=== PATIENT | female | born 1950 | race Caucasian/White ===

== ENCOUNTER 2017-02-12 14:55 | Inpatient (IN) ==
--- NOTE | 2017-02-12 17:12 | General Surg History&Physical ---
<Betito Eaton - Last Filed: 02/12/17 17:43> Date of Encounter: 02/12/17 Time of Encounter: 17:03 Assessment and Plan (1) Acute cholecystitis Current Visit: No Status: Acute Given patient's severe pain and risk of ascending cholangitis, we feel that immediate surgery is appropriate in this patient to limit complication, rather than waiting for a course of antibiotics Plan is for laparoscopic cholecystectomy (possible open) w/ cholangiogram this evening Consent was obtained from the patient The assessment and plan as outlined above was discussed with the patient and/or family members who expressed understanding and agreement. All questions were answered. History of Present Illness Chief complaint: abdominal pain HPI: Ms. Perez is a 66 year old female who presents as a direct admit from [facility] with severe RUQ abdominal pain. The pain started Saturday night, but she denies an inciting factor. She states that it started in the epigastric area and has since migrated to the RUQ. She had nausea and numerous episodes of vomiting the 2 days prior and since. She saw her PCP on Saturday, who prescribed maalox, zofran, and zantac, but none have helped. She admits to anorexia and has not had a bowel movement since the pain began. She denies fever and chills. CT at [facility] was concerning for acute cholecystitis - with significant cholelithiasis, wall thickening, and pericholecystic stranding and fluid. Past medical history is significant for LA x2 on Plavix, HTN, and DM. She did take her plavix this morning. Her only past abdominal surgery was a tubal ligation. Past Med Surg Social Fam HX - Past Medical History Medical history: diabetes, hypertension, myocardial infarction, other Psychiatric history: no psych history - Social History Smoking Status: Never smoker Smokeless Tobacco Status: No Alcohol use: none Drug use: none Medications and Allergies Atorvastatin Calcium [Lipitor] 80 mg PO DAILY 09/10/15 [History] Clopidogrel [Plavix] 75 mg PO DAILY 09/10/15 [History] Ezetimibe [Zetia] 10 mg PO DAILY 09/10/15 [History] Insulin Glargine,Hum.rec.anlog [Lantus Solostar] 20 unit SQ QAM 09/10/15 [ History] Isosorbide MONOnitrate [Isosorbide Mononitrate] 30 mg PO DAILY 09/10/15 [History ] Lisinopril [Zestril] 20 mg PO DAILY 09/10/15 [History] Metoprolol XL (24 HR) Succ [Toprol Xl] 50 mg PO DAILY 09/10/15 [History] hydroCHLOROthiazide [Hydrochlorothiazide] 12.5 mg PO DAILY 09/10/15 [History] Alendronate Sodium [Fosamax] 70 mg PO QWEEK 02/12/17 [History] Canagliflozin [Invokana] 100 mg PO DAILY 02/12/17 [History] Linagliptin [Tradjenta] 5 mg PO DAILY 02/12/17 [History] Mag Hydrox/Al Hydrox/Simeth [Maalox] 10 ml PO QID PRN 02/12/17 [History] Nitroglycerin [Nitrostat] 0.4 mg SL PER PKG DI 02/12/17 [History] Ondansetron ODT [Zofran ODT] 4 mg SL Q8HR 02/12/17 [History] Ranitidine HCl [Zantac] 300 mg PO DAILY 02/12/17 [History] Allergies Iodinated Contrast- Oral and IV Dye Allergy (Verified 02/12/17 12:58) Difficulty Breathing acetaminophen [From [place]] Adverse Reaction (Verified 02/12/17 12:58) Vomiting aspirin [ASA] Adverse Reaction (Verified 02/12/17 12:58) Chest Pain gabapentin Adverse Reaction (Verified 02/12/17 12:58) Diarrhea hydrocodone [From [place]] Adverse Reaction (Verified 02/12/17 12:58) Vomiting Review of Systems All systems PM: A 10-system review of systems was performed and is negative for pertinent findings except as documented above in the HPI. - Constitutional as per HPI, anorexia, no chills, no fever(s) - Cardiovascular no chest pain - Gastrointestinal as per HPI, abdominal pain, nausea, vomiting General Surgery Exam Initial Vital Signs Temp Pulse Resp BP Pulse Ox 98.8 F 65 18 119/65 96 02/12/17 16:58 02/12/17 16:58 02/12/17 16:58 02/12/17 16:58 02/12/17 16:58 - General physical appearance well developed, well nourished, severe pain - Eyes normal ocular movement - ENT atraumatic, normocephalic - Neck trachea midline - Respiratory normal respiratory effort, clear to auscultation, other (Pain with deep inspiration) - Cardiovascular Cardiovascular exam: Present: RRR - Abdomen Abdomen general surgery: Present: bowel sounds present, soft, tender (severely) , guarding. Absent: rebound Abdominal Tenderness: Present: RUQ - Neurologic Present: other (tremors of UEs and Head) - Musculoskeletal Present: other (R hip flexed as position of comfort) - Psychiatric Psychiatric general surgery: Present: appropriate, speech is normal - Additional Findings Dean's sign positive Results - Labs All other labs normal. - Imaging CT scan - abdomen: report reviewed ( CT/CT abd pelvis wo no iv no oral IMPRESSION: 1. Cholelithiasis with diffuse gallbladder wall thickening and pericholecystic stranding suspicious for acute cholecystitis. Further evaluation could be obtained with right upper quadrant ultrasound. Trace likely reactive fluid in the pelvis. No convincing evidence of perforation. 2. 2 cm fat density right adrenal nodule unchanged from 2009 and compatible with a benign myelolipoma. 3. 1.7 cm calcified splenic artery aneurysm unchanged from 2009. Recommend yearly follow-up. 4. Colonic diverticulosis. D/ / Yohannes Jackson MD / Yohannes Jackson MD Interpreting Provider: Yohannes Jackson MD ), image reviewed <Chi Jean-Baptiste - Last Filed: 02/12/17 18:54> Date of Encounter: 02/12/17 History of Present Illness HPI: Ms. Perez is a 66 year old female Review of Systems All systems PM: A 10-system review of systems was performed and is negative for pertinent findings except as documented above in the HPI. General Surgery Exam Initial Vital Signs Temp Pulse Resp BP Pulse Ox 98.8 F 65 18 119/65 96 02/12/17 16:58 02/12/17 16:58 02/12/17 16:58 02/12/17 16:58 02/12/17 16:58 Results - Labs All other labs normal. - Attending Attestation I examined this patient and my medical decision-making was reviewed with the Resident Physician. I agree with the documented findings, disposition and treatment plan as described except to the extent set forth below. The patient is in and evaluated with the resident. Immediately upon arriving at the floor physical examination was performed. The patient has an acute abdomen. I personally reviewed the CAT scan. CAT scan findings are consistent with severe cholecystitis and likely gangrenous cholecystitis. I think it is prudent to take her urgently to the operating room for laparoscopic cholecystectomy. Chi Jean-Baptiste MD FACS
--- NOTE | 2017-02-12 17:38 | Anesthesia Evaluation PreOp ---
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: Denies Any Significant HX Other Medical History: Diabetes Type II Anesthesia History: No Prior Anesthetic Complications Alcohol Use: none Drug use: none Medications and Allergies Atorvastatin Calcium [Lipitor] 80 mg PO DAILY 09/10/15 [History] Clopidogrel [Plavix] 75 mg PO DAILY 09/10/15 [History] Ezetimibe [Zetia] 10 mg PO DAILY 09/10/15 [History] Insulin Glargine,Hum.rec.anlog [Lantus Solostar] 20 unit SQ QAM 09/10/15 [ History] Isosorbide MONOnitrate [Isosorbide Mononitrate] 30 mg PO DAILY 09/10/15 [History ] Lisinopril [Zestril] 20 mg PO DAILY 09/10/15 [History] Metoprolol XL (24 HR) Succ [Toprol Xl] 50 mg PO DAILY 09/10/15 [History] hydroCHLOROthiazide [Hydrochlorothiazide] 12.5 mg PO DAILY 09/10/15 [History] Alendronate Sodium [Fosamax] 70 mg PO QWEEK 02/12/17 [History] Canagliflozin [Invokana] 100 mg PO DAILY 02/12/17 [History] Linagliptin [Tradjenta] 5 mg PO DAILY 02/12/17 [History] Mag Hydrox/Al Hydrox/Simeth [Maalox] 10 ml PO QID PRN 02/12/17 [History] Nitroglycerin [Nitrostat] 0.4 mg SL PER PKG DI 02/12/17 [History] Ondansetron ODT [Zofran ODT] 4 mg SL Q8HR 02/12/17 [History] Ranitidine HCl [Zantac] 300 mg PO DAILY 02/12/17 [History] Allergies Iodinated Contrast- Oral and IV Dye Allergy (Verified 02/12/17 12:58) Difficulty Breathing acetaminophen [From [place]] Adverse Reaction (Verified 02/12/17 12:58) Vomiting aspirin [ASA] Adverse Reaction (Verified 02/12/17 12:58) Chest Pain gabapentin Adverse Reaction (Verified 02/12/17 12:58) Diarrhea hydrocodone [From [place]] Adverse Reaction (Verified 02/12/17 12:58) Vomiting - Meds/Allergy Pre-op Review Medications Reviewed: Yes Allergies Reviewed: Yes Beta Blockers on Current Med List: Yes If Beta Blockers taken, Date/Time (Last Dose taken): 02-12-17 metoprolol 9 am Anesthesia Results - Labs Laboratory Tests 02/12/17 02/12/17 02/12/17 13:10 14:10 14:46 WBC 22.5 H Hgb 15.7 H Hct 44.5 Plt Count 184 PT 14.0 H INR 1.3 APTT 28.8 Sodium 133 L Potassium 4.4 Chloride 99 Carbon Dioxide 21 BUN 25 H Creatinine 1.32 H Est GFR ( Amer) 49 L Est GFR (Non-Af Amer) 40 L BUN/Creatinine Ratio 19 Glucose 293 H Calculated Osmolality 291 Calcium 9.1 - Imaging EKG: report reviewed, image reviewed (SINUS RHYTHM NONSPECIFIC T-WAVE ABNORMALITY) Additional studies: stress test: Impression: Baseline elevated BP (182/84) with normal hemodynamic responses to pharmacologic stress. BP improved to 146/70 in recovery. Non-specific ST-T wave changes were seen with regadenoson. No changes diagnostic of ischemia. Gated LVEF > 70%. Perfusion imaging was negative for ischemia or infarct. Anesthesia Exam Last Vital Signs Temp 98.8 F 02/12/17 16:58 Pulse 65 02/12/17 16:58 Resp 18 02/12/17 16:58 BP 119/65 02/12/17 16:58 Pulse Ox 96 02/12/17 16:58 - HEENT Pupil (Motor): Pupils equal, EOMI Mallampati: III Teeth: Edentulous Denture Type: Upper: Complete Oral Opening: Greater than 3 - SCADA TECHNICIAN LOC: Oriented SCADA TECHNICIAN Motor: Normal RUE, Normal LUE, Normal RLE, Normal LLE, Normal Face - Cardiac Rhythm: Regular Murmur: None - Pulmonary Breath Sounds: bilateral Clear Respiratory Effort: Symmetrical Anesthesia Assess/Plan ASA Score: 3 Modified [place] Scale for Level of Consciousness: Cooperative, oriented, and tranquil Anesthetic Plan: General Monitoring Plan: Standard Monitors Recovery Plan: PACU
[2017-02-12] MEDS ORDERED: CefOXitin 1,000 MG VIAL ONE (17:45)
[2017-02-12] MEDS ORDERED: Lidocaine -MPF 2% 2 ML VIAL ONE ×2 (17:46→17:48)
[2017-02-12] MEDS ORDERED: *HR* Rocuronium Bromide 50 MG/5 ML VIAL ONE (17:46)
[2017-02-12] MEDS ORDERED: *HR* FentaNYL (PF) 100 MCG/2 ML VIAL ONE (17:46)
[2017-02-12] MEDS ORDERED: Lidocaine -MPF 4% 5 ML AMPUL ONE (17:46)
[2017-02-12] MEDS ORDERED: *HR* Propofol 200 MG/20 ML VIAL IVP ONE (17:46)
[2017-02-12] MEDS ORDERED: Ondansetron 4 MG/2 ML VIAL ONE ×2 (17:48→19:17)
[2017-02-12] MEDS ORDERED: Dexamethasone 4 MG/ML VIAL ONE (19:17)
[2017-02-12] MEDS ORDERED: Acetaminophen IV 1,000 MG/100 ML INFUS..BTL ONE (19:24)
--- NOTE | 2017-02-12 20:00 | Operative Note ---
Date of procedure: 02/12/17 Pre-op diagnosis: Acute cholecystitis Post-op diagnosis: other (Acute gangrenous cholecystitis) Procedure: Laparoscopic cholecystectomy, cholangiogram Anesthesia: AMARI Surgeon: Chi Jean-Baptiste Estimated blood loss (cc): 25 Specimen: Gallbladder and contents Condition: stable Disposition: PACU Procedure in Detail: Laparoscopic cholecystectomy and intraoperative cholangiogram Operative procedure after informed consent and appropriate patient identification timeout the patient's take major operating suite and placed supine position given adequate general endotracheal anesthesia the abdomen is prepped and draped in sterile fashion utilizing ChloraPrep standard draping techniques timeout was taken patient is identified. I made a vertical midline incision below the umbilicus dissected down to level of fascia there are 2 traction stitches placed in the abdominal cavity was entered visually. A [place]o trocar was placed in the abdomen and the abdomen was insufflated to 15 mmHg pressure CO2 the gallbladder was visualized. A placement 11 port in the subxiphoid area and 2 5 mm ports in the subcostal area. The gallbladder was gangrenous and necrotic. The gallbladder was completely encased and acute inflammatory tissue comprised of the omentum. The gallbladder was grasped and elevated. A variety of blunt and sharp dissection techniques were used to isolate the cystic duct and cystic artery. The cystic artery was controlled with 2 surgical clips proximally and one distally and it was divided I placed a surgical clip on the neck the gallbladder and obtained an intraoperative cholangiogram using 30 mL of Isovue. The patient has a known allergy to IVP dye. She tolerated the contrast into the common bile duct without difficulty, hypotension, or rash. Intraoperative cholangiogram was normal. The cholangiocatheter was removed and the cystic duct was controlled with 2 surgical clips proximally and was divided the gallbladder was removed from the gallbladder fossae using electrocautery. The gallbladder was removed through the #11 port site. I replaced the #11 port and irrigated with copious amounts of antibiotic containing solution. There is no evidence of bleeding or bile leak. All trochars were removed. Fascia was closed with 0 Vicryl skin with 2-0 and 4-0 Vicryl she tolerated the procedure well and was transferred to recovery in stable condition
[2017-02-12] MEDS ORDERED: Dextrose Gel 15 GM PO PRN ×2 (21:13)
[2017-02-12] MEDS ORDERED: *HR* OxyCODONE/APAP 5/325 TABLET PO PRN (21:13)
[2017-02-12] MEDS ORDERED: *HR* Dextrose 50 % in Water (Syg) 50 ML SYRINGE IVP PRN (21:13)
[2017-02-12] MEDS ORDERED: Ondansetron 4 MG/2 ML VIAL IVP PRN (21:13)
[2017-02-12] MEDS ORDERED: D5% in Water 1,000 ML IVC PRN (21:13)
--- NOTE | 2017-02-12 22:16 | Anesthesia Evaluation Post Op ---
Date of Encounter: 02/12/17 Time of Encounter: 20:30 - Vital Signs Vital Signs: Vital Signs/O2 Sat/Glucose, Most Current Temp Pulse Resp BP Pulse Ox 02/12/17 20:39 99.3 F 62 12 128/52 97 02/12/17 20:29 63 14 120/71 97 02/12/17 20:19 64 16 122/60 97 02/12/17 20:09 99 F 64 16 123/65 100 - Lungs Lungs: Clear Ascult./Percussion - Airway Airway: Non-obstructed - Cardiovascular Regular Rate - Mental Status Mental Status: Alert & Oriented, Answers Appropriately - Pain Pain Scale: 0 Pain Scale used: Numeric (1 - 10) - Nausea Vomiting Nausea Vomiting: Not Present - Hydration Hydration: NPO, Has not voided - Discharge PostOp Status: Transfer Patient to floor Anes Supervising Prov Stmt: PT seen/evaluated, VSS and pt has met criteria for discharge to floor. - MD Adelso
[2017-02-13] MEDS: MetroNIDAZOLE 500 MG/100 ML 500 MG/100 ML BAG IVPB SCH ×4 (00:23→23:50)
[2017-02-13] MEDS: *HR* Metoprolol 5 MG/5 ML VIAL IVP SCH ×4 (00:23→17:57)
[2017-02-13] MEDS: *HR* HYDROmorphone (PF) 1 MG/ML SYRINGE IVP PRN (04:42)
[2017-02-13 05:22] LABS: Basophils % 0.1 %; Hematocrit 38.8 % (35.3-44.9); Immature Granulocytes % 0.5 % (0-4); Lymphocytes # 1.1 K/mcL (0.6-4.6); Mean Corpuscular HGB Conc 33.5 g/dL (31.6-35.5); Mean Corpuscular Hemoglobin 29.9 pg (28.0-33.3); Mean Corpuscular Volume 89.2 fL (83.0-100.0); Mean Platelet Volume 12.1 fL (9.4-12.4); Monocytes # 0.6 K/mcL (0.0-1.3); Monocytes % 4.2 %; Neutrophils # 11.5 K/mcL (1.6-8.9); Platelet Count 153 K/mcL (140-400); Red Blood Count 4.35 M/mcL (3.82-4.97); Red Cell Distribution Width 12.3 % (11.5-14.5); Segmented Neutrophils % 87.2 %
[2017-02-13 05:39] LABS: Alanine Aminotransferase 50 Units/L (0-55); Albumin 2.7 g/dL (3.5-5.0); Albumin/Globulin Ratio 0.8 (1.1-2.2); Alkaline Phosphatase 77 Units/L (38-126); Aspartate Amino Transferase 76 Units/L (5-34); BUN/Creatinine Ratio 27 (6-26); Bilirubin,Direct 0.6 mg/dL (0.0-0.5); Bilirubin,Indirect 2.4 mg/dL (0.0-1.2); Blood Urea Nitrogen 24 mg/dL (7-20); Calcium 8.4 mg/dL (8.6-10.8); Carbon Dioxide 25 mEq/L (19-29); Chloride 103 mEq/L (98-109); Globulin 3.2 g/dL (2.4-3.5); Glucose 270 mg/dL (70-99); Osmolality,Calculated 290 (280-300); Potassium 4.4 mEq/L (3.5-4.5); Sodium 133 mEq/L (136-145); Total Protein 5.9 g/dL (6.0-8.3); eGFR For African Americans > 60 (> 60); eGFR For Non-African Americans > 60 (> 60)
[2017-02-13] MEDS: Pantoprazole 40 MG VIAL IVP SCH (05:40)
[2017-02-13] MEDS ORDERED: *HR* Heparin 5,000 UNIT/ML VIAL SQ SCH (06:00)
[2017-02-13] MEDS ORDERED: Insulin LISPRO 300 UNITS/3 ML VIAL SQ SCH (07:30)
[2017-02-13] MEDS: Lisinopril 20 MG TABLET PO SCH (07:39)
[2017-02-13] MEDS: Metoprolol XL (24 HR) Succ 50 MG TAB.ER.24H PO SCH (07:39)
[2017-02-13] MEDS: 0.9 % Sodium Chloride 1,000 ML IVC SCH ×2 (07:40→23:48)
[2017-02-13] MEDS: Isosorbide MONOnitrate (24 HR) 30 MG TAB.ER.24H PO SCH (07:41)
[2017-02-13] MEDS: Canagliflozin [Invokana] 100 MG PO SCH (07:42)
[2017-02-13] MEDS ORDERED: Insulin DETEMIR 100 UNIT/ML X5UNITS SQ SCH (09:00)
--- NOTE | 2017-02-13 09:36 | General Surgery Progress Note ---
<Uma,Betito - Last Filed: 02/13/17 09:29> Date of Encounter: 02/13/17 Time of Encounter: 06:30 - Assessment and Plan (1) Acute cholecystitis Current Visit: No Status: Acute POD #1 Laparoscopic Cholecystectomy Patient is clinically much better since procedure There is particular concern for development of ascending cholangitis during recovery We will monitor for fever over the next 24 hrs WBC trending down current 13.2 < 22.5 We will monitor for improvement in LFTs, total bili 3.0 We will attempt tighter control of glucose by increasing to high dose sliding scale and increasing lantus from 20 to 30 units Continue antibiotics We expect the patient to continue to improve (2) Hyperglycemia Current Visit: Yes Status: Acute See plan of care above Subjective Patient reports: feels better, pain is less, tolerating liquids well, voiding w/ o difficulty, no flatus, no bowel movement, afebrile Narrative: Patient feels much improved, with pain at 2-3/10. Objective Vital Signs - Last 8 Hours Temp Pulse Resp BP Pulse Ox 02/13/17 06:52 97.7 F 74 14 122/74 93 02/13/17 04:16 98.0 F 59 15 128/65 95 Intake and Output 02/12/17 02/13/17 02/13/17 23:59 07:59 15:59 Intake Total 300 / 300 480 / 480 Output Total 100 / 100 1135 / 1135 Balance -100 / -100 -835 / -835 480 / 480 Intake: IV Fluids 300 / 300 Cipro Premix 400 MG/200 200 / 200 ML 400 mg In 200 ml @ 200 mls/hr IVPB Q12HR [facility] Rx #:[id number] Flagyl Premix 500 MG/100 100 / 100 ML 500 mg In 100 ml @ 100 mls/hr IVPB Q8HR [facility] Rx# :[id number] Oral 0 / 0 480 / 480 Output: Urine 1100 / 1100 Estimated Blood Loss 25 / 25 Wound Drainage 75 / 75 35 / 35 Right Upper Abdomen 75 / 75 35 / 35 Other: Meal Breakfast Weight 61.3 kg 63.5 kg Blood Glucose* 230 287 Patient Weight 02/13/17 23:59 Weight 63.5 kg - General physical appearance well developed, well nourished, no distress - Eyes normal ocular movement - ENT atraumatic, normocephalic - Neck Neck exam: trachea midline - Respiratory normal expansion, normal respiratory effort, clear to auscultation - Abdomen Abdomen: Present: soft, tender. Absent: guarding, rebound Abdominal Tenderness: RUQ (expected postoperative tenderness) - Incision Incision: Present: draining (juliane drain), serosanguinous - Psychiatric speech is normal - Labs 02/13/17 04:16 02/13/17 04:16 Diabetes panel 02/13/17 Range/Units 04:16 Sodium 133 L (136-145) mEq/L Potassium 4.4 (3.5-4.5) mEq/L Chloride 103 (98-109) mEq/L Carbon Dioxide 25 (19-29) mEq/L BUN 24 H (7-20) mg/dL Creatinine 0.89 (0.57-1.11) mg/dL Glucose 270 H (70-99) mg/dL Calcium 8.4 L (8.6-10.8) mg/dL AST 76 H (5-34) Units/L ALT 50 (0-55) Units/L Alkaline Phosphatase 77 (38-126) Units/L Albumin 2.7 L (3.5-5.0) g/dL Calcium panel 02/13/17 Range/Units 04:16 Calcium 8.4 L (8.6-10.8) mg/dL Albumin 2.7 L (3.5-5.0) g/dL Pituitary panel 02/13/17 Range/Units 04:16 Sodium 133 L (136-145) mEq/L Potassium 4.4 (3.5-4.5) mEq/L Chloride 103 (98-109) mEq/L Carbon Dioxide 25 (19-29) mEq/L BUN 24 H (7-20) mg/dL Creatinine 0.89 (0.57-1.11) mg/dL Glucose 270 H (70-99) mg/dL Calcium 8.4 L (8.6-10.8) mg/dL Adrenal panel 02/13/17 Range/Units 04:16 Sodium 133 L (136-145) mEq/L Potassium 4.4 (3.5-4.5) mEq/L Chloride 103 (98-109) mEq/L Carbon Dioxide 25 (19-29) mEq/L BUN 24 H (7-20) mg/dL Creatinine 0.89 (0.57-1.11) mg/dL Glucose 270 H (70-99) mg/dL Calcium 8.4 L (8.6-10.8) mg/dL Total Bilirubin 3.0 H (0.2-1.2) mg/dL AST 76 H (5-34) Units/L ALT 50 (0-55) Units/L Alkaline Phosphatase 77 (38-126) Units/L Albumin 2.7 L (3.5-5.0) g/dL - VTE Documentation of Mechanical Device: Intermittent pneumatic compression device Consult Discharge Plan - Plan Referrals: Cameron Durán MD [Primary Care Provider] - Payal Funes CNP [Advanced Practice Nurse] - 02/28/17 10:30 am <Chi Jean-Baptiste - Last Filed: 02/14/17 08:12> Date of Encounter: 02/13/17 Objective Vital Signs - Last 8 Hours Temp Pulse Resp BP Pulse Ox 02/14/17 06:33 97.8 F 57 14 123/68 93 02/14/17 04:58 98.0 F 90 14 139/68 93 Intake and Output 02/13/17 02/14/17 02/14/17 23:59 07:59 15:59 Intake Total 1660 / 1660 120 / 120 Output Total 160 / 160 630 / 630 Balance 1500 / 1500 -510 / -510 Intake: IV Fluids 1300 / 1300 0.9 % Sodium Chloride 1, 1000 / 1000 000 ML @ 75 mls/hr IVC . [id number] [facility] Rx#: [id number] Cipro Premix 400 MG/200 200 / 200 ML 400 mg In 200 ml @ 200 mls/hr IVPB Q12HR [facility] Rx #:[id number] Flagyl Premix 500 MG/100 100 / 100 ML 500 mg In 100 ml @ 100 mls/hr IVPB Q8HR [facility] Rx# :[id number] Oral 360 / 360 120 / 120 Output: Urine 100 / 100 600 / 600 Wound Drainage 60 / 60 30 / 30 Right Upper Abdomen 60 / 60 30 / 30 Other: Meal Dinner Percent of Meal Consumed 100% Stool Size Moderate Small Stool Consistency loose soft soft Stool Color Brown Brown # Voids 1 # Bowel Movements 1 0 Weight 63.095 kg Blood Glucose* 177 144 Patient Weight 02/14/17 23:59 Weight 63.095 kg - Labs 08/17/17 05:30 02/14/17 05:30 Diabetes panel 02/14/17 Range/Units 05:30 Sodium 139 (136-145) mEq/L Potassium 3.8 (3.5-4.5) mEq/L Chloride 111 H (98-109) mEq/L Carbon Dioxide 23 (19-29) mEq/L BUN 27 H (7-20) mg/dL Creatinine 1.25 H (0.57-1.11) mg/dL Glucose 105 H (70-99) mg/dL Calcium 8.8 (8.6-10.8) mg/dL AST 78 H (5-34) Units/L ALT 67 H (0-55) Units/L Alkaline Phosphatase 84 (38-126) Units/L Albumin 3.0 L (3.5-5.0) g/dL Calcium panel 02/14/17 Range/Units 05:30 Calcium 8.8 (8.6-10.8) mg/dL Albumin 3.0 L (3.5-5.0) g/dL Pituitary panel 02/14/17 Range/Units 05:30 Sodium 139 (136-145) mEq/L Potassium 3.8 (3.5-4.5) mEq/L Chloride 111 H (98-109) mEq/L Carbon Dioxide 23 (19-29) mEq/L BUN 27 H (7-20) mg/dL Creatinine 1.25 H (0.57-1.11) mg/dL Glucose 105 H (70-99) mg/dL Calcium 8.8 (8.6-10.8) mg/dL Adrenal panel 02/14/17 Range/Units 05:30 Sodium 139 (136-145) mEq/L Potassium 3.8 (3.5-4.5) mEq/L Chloride 111 H (98-109) mEq/L Carbon Dioxide 23 (19-29) mEq/L BUN 27 H (7-20) mg/dL Creatinine 1.25 H (0.57-1.11) mg/dL Glucose 105 H (70-99) mg/dL Calcium 8.8 (8.6-10.8) mg/dL Total Bilirubin 2.0 H (0.2-1.2) mg/dL AST 78 H (5-34) Units/L ALT 67 H (0-55) Units/L Alkaline Phosphatase 84 (38-126) Units/L Albumin 3.0 L (3.5-5.0) g/dL - Attending Attestation I examined this patient and my medical decision-making was reviewed with the Resident Physician. I agree with the documented findings, disposition and treatment plan as described except to the extent set forth below. The patient was seen and evaluated on morning rounds. Her laboratory tests are improved. Glucose remains high and we will increase her insulin coverage. Overall good progress. Chi Burgess FACS
[2017-02-13] MEDS: Insulin DETEMIR 100 UNIT/ML X5UNITS SQ SCH (10:00)
[2017-02-13] MEDS: Insulin LISPRO 300 UNITS/3 ML VIAL SQ SCH ×2 (11:54→16:26)
[2017-02-13] MEDS: Ibuprofen 800 MG TABLET PO PRN (14:51)
[2017-02-14] MEDS: *HR* Metoprolol 5 MG/5 ML VIAL IVP SCH ×2 (00:01→06:09)
[2017-02-14] MEDS: Ibuprofen 800 MG TABLET PO PRN (04:55)
[2017-02-14 05:48] LABS: Basophils % 0.3 %; Eosinophils # 0.1 K/mcL (0.0-0.6); Eosinophils % 0.3 %; Hematocrit 42.1 % (35.3-44.9); Hemoglobin 13.8 g/dL (11.5-15.4); Immature Granulocytes % 0.4 % (0-4); Lymphocytes # 2.1 K/mcL (0.6-4.6); Lymphocytes % 14.4 %; Mean Corpuscular HGB Conc 32.8 g/dL (31.6-35.5); Mean Corpuscular Hemoglobin 29.7 pg (28.0-33.3); Mean Corpuscular Volume 90.5 fL (83.0-100.0); Mean Platelet Volume 11.8 fL (9.4-12.4); Monocytes # 1.6 K/mcL (0.0-1.3); Monocytes % 10.9 %; Neutrophils # 10.7 K/mcL (1.6-8.9); Platelet Count 198 K/mcL (140-400); Red Blood Count 4.65 M/mcL (3.82-4.97); Red Cell Distribution Width 12.5 % (11.5-14.5); Segmented Neutrophils % 73.7 %
[2017-02-14 05:53] LABS: Albumin/Globulin Ratio 0.8 (1.1-2.2); Calcium 8.8 mg/dL (8.6-10.8); Globulin 3.6 g/dL (2.4-3.5); Potassium 3.8 mEq/L (3.5-4.5); Total Protein 6.6 g/dL (6.0-8.3)
[2017-02-14] MEDS: Pantoprazole 40 MG VIAL IVP SCH (05:55)
--- NOTE | 2017-02-14 08:39 | General Surgery Progress Note ---
<Betito Eaton - Last Filed: 02/14/17 08:37> Date of Encounter: 02/14/17 Time of Encounter: 06:15 - Assessment and Plan (1) Acute cholecystitis Current Visit: No Status: Acute POD #2 Laparoscopic Cholecystectomy Patient continues to improve Tolerating diabetic diet T. Bili 2.0 < 3.0, WBC 14.6 < 13.2 Will continue to monitor No fever overnight, will continue to monitor Remove EDMUND drain - no bilious output Continue antibiotics We expect continued improvement Probable DC tomorrow if labs continue to improve (2) Hyperglycemia Current Visit: Yes Status: Acute Improved Continue lantus 30, high dose sliding scale insulin, and home invokana Will monitor (3) Diarrhea Current Visit: Yes Status: Acute Currently on cipro and flagyl Will monitor WBC count and temperature Started cholestyramine powder QID (4) DVT prophylaxis Current Visit: Yes Status: Acute Start heparin 5000 units subq q12 hrs Subjective Patient reports: no new complaints, feels better, tolerating a regular diet, voiding w/o difficulty, flatus, bowel movement, diarrhea (frequent loose stools) , afebrile Objective Vital Signs - Last 8 Hours Temp Pulse Resp BP Pulse Ox 02/14/17 06:33 97.8 F 57 14 123/68 93 02/14/17 04:58 98.0 F 90 14 139/68 93 Intake and Output 02/13/17 02/14/17 02/14/17 23:59 07:59 15:59 Intake Total 1660 / 1660 120 / 120 Output Total 160 / 160 630 / 630 Balance 1500 / 1500 -510 / -510 Intake: IV Fluids 1300 / 1300 0.9 % Sodium Chloride 1, 1000 / 1000 000 ML @ 75 mls/hr IVC . [id number] [facility] Rx#: [id number] Cipro Premix 400 MG/200 200 / 200 ML 400 mg In 200 ml @ 200 mls/hr IVPB Q12HR [facility] Rx #:[id number] Flagyl Premix 500 MG/100 100 / 100 ML 500 mg In 100 ml @ 100 mls/hr IVPB Q8HR [facility] Rx# :[id number] Oral 360 / 360 120 / 120 Output: Urine 100 / 100 600 / 600 Wound Drainage 60 / 60 30 / 30 Right Upper Abdomen 60 / 60 30 / 30 Other: Meal Dinner Percent of Meal Consumed 100% Stool Size Moderate Small Stool Consistency loose soft soft Stool Color Brown Brown # Voids 1 # Bowel Movements 1 0 Weight 63.095 kg Blood Glucose* 177 144 Patient Weight 02/14/17 23:59 Weight 63.095 kg - General physical appearance well developed, well nourished, no distress - Eyes normal ocular movement - ENT atraumatic, normocephalic - Neck Neck exam: trachea midline - Respiratory normal expansion, normal respiratory effort, clear to auscultation - Cardiovascular Cardiovascular exam: Present: RRR - Abdomen Abdomen: Present: bowel sounds present, soft, non tender - Incision Incision: Present: draining (EDMUND drain ), serosanguinous - Musculoskeletal normal posture - Psychiatric speech is normal - Labs 02/14/17 05:30 02/14/17 05:30 Diabetes panel 02/14/17 Range/Units 05:30 Sodium 139 (136-145) mEq/L Potassium 3.8 (3.5-4.5) mEq/L Chloride 111 H (98-109) mEq/L Carbon Dioxide 23 (19-29) mEq/L BUN 27 H (7-20) mg/dL Creatinine 1.25 H (0.57-1.11) mg/dL Glucose 105 H (70-99) mg/dL Calcium 8.8 (8.6-10.8) mg/dL AST 78 H (5-34) Units/L ALT 67 H (0-55) Units/L Alkaline Phosphatase 84 (38-126) Units/L Albumin 3.0 L (3.5-5.0) g/dL Calcium panel 02/14/17 Range/Units 05:30 Calcium 8.8 (8.6-10.8) mg/dL Albumin 3.0 L (3.5-5.0) g/dL Pituitary panel 02/14/17 Range/Units 05:30 Sodium 139 (136-145) mEq/L Potassium 3.8 (3.5-4.5) mEq/L Chloride 111 H (98-109) mEq/L Carbon Dioxide 23 (19-29) mEq/L BUN 27 H (7-20) mg/dL Creatinine 1.25 H (0.57-1.11) mg/dL Glucose 105 H (70-99) mg/dL Calcium 8.8 (8.6-10.8) mg/dL Adrenal panel 02/14/17 Range/Units 05:30 Sodium 139 (136-145) mEq/L Potassium 3.8 (3.5-4.5) mEq/L Chloride 111 H (98-109) mEq/L Carbon Dioxide 23 (19-29) mEq/L BUN 27 H (7-20) mg/dL Creatinine 1.25 H (0.57-1.11) mg/dL Glucose 105 H (70-99) mg/dL Calcium 8.8 (8.6-10.8) mg/dL Total Bilirubin 2.0 H (0.2-1.2) mg/dL AST 78 H (5-34) Units/L ALT 67 H (0-55) Units/L Alkaline Phosphatase 84 (38-126) Units/L Albumin 3.0 L (3.5-5.0) g/dL - VTE Documentation of Mechanical Device: Intermittent pneumatic compression device Consult Discharge Plan - Plan Additional Instructions: #1 may shower, no tub bath or swimming for 2 weeks #2 wash incisions with soap and water and pat dry daily #3 no lifting, pushing, pulling more than 15 pounds for the next 2 weeks #4 no driving until off narcotics for 24 hours and able to safely react in the car #5 may climb stairs Referrals: Cameron Durán MD [Primary Care Provider] - (hospital follow-up; 5-7 days) Payal Funes CNP [Advanced Practice Nurse] - 02/28/17 10:30 am Prescriptions: OxyCODONE/APAP 5/325 [Percocet 5/325 MG] 1 each PO Q4HR PRN #30 tab PRN Reason: Pain Ciprofloxacin [Cipro] 500 mg PO BID #14 tablet metroNIDAZOLE [Flagyl] 500 mg PO BID #14 tablet <Chi Jean-Baptiste T - Last Filed: 02/14/17 15:28> Date of Encounter: 02/14/17 Objective Vital Signs - Last 8 Hours Temp Pulse Resp BP Pulse Ox 02/14/17 14:00 98.6 F 92 16 115/62 98 02/14/17 10:00 97.7 F 56 16 149/77 96 Intake and Output 02/13/17 02/14/17 02/14/17 23:59 07:59 15:59 Intake Total 1660 / 1660 120 / 120 1480 / 1480 Output Total 160 / 160 630 / 630 Balance 1500 / 1500 -510 / -510 1480 / 1480 Intake: IV Fluids 1300 / 1300 0 / 0 1000 / 1000 0.9 % Sodium Chloride 1, 1000 / 1000 1000 / 1000 000 ML @ 75 mls/hr IVC . [id number] [facility] Rx#: [id number] Cipro Premix 400 MG/200 200 / 200 ML 400 mg In 200 ml @ 200 mls/hr IVPB Q12HR [facility] Rx #:[id number] Flagyl Premix 500 MG/100 100 / 100 0 / 0 ML 500 mg In 100 ml @ 100 mls/hr IVPB Q8HR [facility] Rx# :[id number] Oral 360 / 360 120 / 120 480 / 480 Output: Urine 100 / 100 600 / 600 Wound Drainage 60 / 60 30 / 30 Right Upper Abdomen 60 / 60 30 / 30 Other: Meal Dinner Lunch Percent of Meal Consumed 100% 100% Stool Size Moderate Small Stool Consistency loose soft soft Stool Color Brown Brown # Voids 1 # Bowel Movements 1 0 Weight 63.095 kg Blood Glucose* 177 144 280 Patient Weight 02/14/17 23:59 Weight 63.095 kg - Labs 02/14/17 05:30 02/14/17 05:30 Diabetes panel 02/14/17 Range/Units 05:30 Sodium 139 (136-145) mEq/L Potassium 3.8 (3.5-4.5) mEq/L Chloride 111 H (98-109) mEq/L Carbon Dioxide 23 (19-29) mEq/L BUN 27 H (7-20) mg/dL Creatinine 1.25 H (0.57-1.11) mg/dL Glucose 105 H (70-99) mg/dL Calcium 8.8 (8.6-10.8) mg/dL AST 78 H (5-34) Units/L ALT 67 H (0-55) Units/L Alkaline Phosphatase 84 (38-126) Units/L Albumin 3.0 L (3.5-5.0) g/dL Calcium panel 02/14/17 Range/Units 05:30 Calcium 8.8 (8.6-10.8) mg/dL Albumin 3.0 L (3.5-5.0) g/dL Pituitary panel 02/14/17 Range/Units 05:30 Sodium 139 (136-145) mEq/L Potassium 3.8 (3.5-4.5) mEq/L Chloride 111 H (98-109) mEq/L Carbon Dioxide 23 (19-29) mEq/L BUN 27 H (7-20) mg/dL Creatinine 1.25 H (0.57-1.11) mg/dL Glucose 105 H (70-99) mg/dL Calcium 8.8 (8.6-10.8) mg/dL Adrenal panel 02/14/17 Range/Units 05:30 Sodium 139 (136-145) mEq/L Potassium 3.8 (3.5-4.5) mEq/L Chloride 111 H (98-109) mEq/L Carbon Dioxide 23 (19-29) mEq/L BUN 27 H (7-20) mg/dL Creatinine 1.25 H (0.57-1.11) mg/dL Glucose 105 H (70-99) mg/dL Calcium 8.8 (8.6-10.8) mg/dL Total Bilirubin 2.0 H (0.2-1.2) mg/dL AST 78 H (5-34) Units/L ALT 67 H (0-55) Units/L Alkaline Phosphatase 84 (38-126) Units/L Albumin 3.0 L (3.5-5.0) g/dL - Attending Attestation I examined this patient and my medical decision-making was reviewed with the Resident Physician. I agree with the documented findings, disposition and treatment plan as described except to the extent set forth below. The patient is seen and evaluated on morning rounds with the resident. We can go ahead and remove her Nikhil-Bermudez drain today. She is having multiple diarrhea stools. We will start cholestyramine. Chi Jean-Baptiste MD FACS
[2017-02-14] MEDS: Cholestyramine 4 GM POWD.PACK PO SCH ×4 (10:08→19:59)
[2017-02-14] MEDS: Isosorbide MONOnitrate (24 HR) 30 MG TAB.ER.24H PO SCH (10:10)
[2017-02-14] MEDS: MetroNIDAZOLE 500 MG/100 ML 500 MG/100 ML BAG IVPB SCH ×2 (10:11→15:35)
[2017-02-14] MEDS: Lisinopril 20 MG TABLET PO SCH (10:11)
[2017-02-14] MEDS: Metoprolol XL (24 HR) Succ 50 MG TAB.ER.24H PO SCH (10:11)
[2017-02-14] MEDS: Insulin DETEMIR 100 UNIT/ML X5UNITS SQ SCH (10:12)
[2017-02-14] MEDS: Insulin LISPRO 300 UNITS/3 ML VIAL SQ SCH ×3 (10:20→16:51)
[2017-02-14] MEDS: Canagliflozin [Invokana] 100 MG PO SCH (10:25)
[2017-02-14] MEDS ORDERED: *HR* Metoprolol 5 MG/5 ML VIAL IVP PRN (10:42)
[2017-02-14] MEDS: 0.9 % Sodium Chloride 1,000 ML IVC SCH (12:48)
--- NOTE | 2017-02-14 14:14 | Discharge Summary ---
Date of Encounter: 02/14/17 Time of Encounter: 14:00 - Discharge Diagnosis (1) Acute cholecystitis Priority: Primary Status: Resolved (2) Hyperglycemia Priority: Secondary Status: Chronic - Discharge Medications Prescriptions: OxyCODONE/APAP 5/325 [Percocet 5/325 MG] 1 each PO Q4HR PRN #30 tab PRN Reason: Pain Ciprofloxacin [Cipro] 500 mg PO BID #14 tablet metroNIDAZOLE [Flagyl] 500 mg PO BID #14 tablet Home Medications: Atorvastatin Calcium [Lipitor] 80 mg PO HS 09/10/15 [History] Clopidogrel [Plavix] 75 mg PO DAILY 09/10/15 [History] Ezetimibe [Zetia] 10 mg PO DAILY 09/10/15 [History] Insulin Glargine,Hum.rec.anlog [Lantus Solostar] 20 unit SQ QAM 09/10/15 [ History] hydroCHLOROthiazide [Hydrochlorothiazide] 12.5 mg PO DAILY 09/10/15 [History] Alendronate Sodium [Fosamax] 70 mg PO QWEEK 02/12/17 [History] Canagliflozin [Invokana] 100 mg PO DAILY 02/12/17 [History] Isosorbide MONOnitrate (24 HR) [Imdur] 30 mg PO DAILY 02/12/17 [History] Linagliptin [Tradjenta] 5 mg PO DAILY 02/12/17 [History] Lisinopril [Zestril] 20 mg PO DAILY 02/12/17 [History] Mag Hydrox/Al Hydrox/Simeth [Maalox] 10 ml PO QID PRN 02/12/17 [History] Metoprolol XL (24 HR) Succ [Toprol Xl] 50 mg PO DAILY 02/12/17 [History] Nitroglycerin [Nitrostat] 0.4 mg SL Q5M PRN 02/12/17 [History] Ondansetron HCl [Zofran] 4 mg PO TID PRN 02/12/17 [History] Ranitidine HCl [Zantac] 300 mg PO DAILY 02/12/17 [History] Ciprofloxacin [Cipro] 500 mg PO BID #14 tablet 02/14/17 [Rx] OxyCODONE/APAP 5/325 [Percocet 5/325 MG] 1 each PO Q4HR PRN #30 tab 02/14/17 [Rx ] metroNIDAZOLE [Flagyl] 500 mg PO BID #14 tablet 02/14/17 [Rx] Allergies/Adverse Reactions: 3 Allergy/AdvReac Type Severity Reaction Status Date / Time Iodinated Contrast- Oral and Allergy Difficulty Verified 02/12/17 12:58 IV Dye Breathing acetaminophen [From [place]] AdvReac Vomiting Verified 02/12/17 12:58 aspirin [ASA] AdvReac Chest Pain Verified 02/12/17 12:58 gabapentin AdvReac Diarrhea Verified 02/12/17 12:58 hydrocodone [From [place]] AdvReac Vomiting Verified 02/12/17 12:58 General Surgery Exam Initial Vital Signs Temp Pulse Resp BP Pulse Ox 98.8 F 65 18 119/65 96 02/12/17 16:58 02/12/17 16:58 02/12/17 16:58 02/12/17 16:58 02/12/17 16:58 Date of admission: 02/12/17 23:03 Primary care physician: Cameron Durán MD Discharging clinician: Chi Jean-Baptiste (Yasmine Funes) Anticipated date of discharge: 02/15/17 - Patient Status Disposition: Home, Self-Care Condition: Good Functional capacity at discharge: independent ambulation Overall status at discharge: patient is progressing back to baseline - Discharge Instructions Follow Up With: Payal Funes CNP [Advanced Practice Nurse] - 02/28/17 10:30 am Cameron Durán MD [Primary Care Provider] - (hospital follow-up; 5-7 days) Additional Instructions: #1 may shower, no tub bath or swimming for 2 weeks #2 wash incisions with soap and water and pat dry daily #3 no lifting, pushing, pulling more than 15 pounds for the next 2 weeks #4 no driving until off narcotics for 24 hours and able to safely react in the car #5 may climb stairs - Diet and Activity Activity: other (See additional instructions above) Diet: diabetic diet - Hospital Course Hospital course: Ms. Perez is a 66 year old female presented to the hospital with complaints of right upper quadrant abdominal pain with associated nausea and vomiting. She was found to have acute cholecystitis and was started on IV antibiotic therapy. She was taken to the operating room with Dr. Jean-Baptiste for laparoscopic cholecystectomy. She was found to have acute gangrenous cholecystitis. Her postoperative course was complicated by hyperglycemia. She was continued on IV antibiotics for her gangrenous cholecystitis and mildly elevated white blood cell count. Her blood sugars did improve with adjustments to her insulin regimen. We will begin discharge planning to home from the patient's white blood cell count is trending towards normal and her blood sugars are stable. We will also ensure that she is tolerating a diet without nausea vomiting, vital signs are stable and afebrile, voiding and ambulating without difficulty. Plan for outpatient follow-up in the next 10-14 days. - Time Spent with Patient Total time spent providing and/or coordinating discharge services: Less than 30 minutes Labs on day of discharge: Labs from last 24 hours 02/14/17 02/14/17 02/14/17 11:45 07:22 05:30 WBC RBC Hgb Hct MCV MCH MCHC RDW Plt Count MPV Immature Gran % Seg Neutrophils % Lymphocytes % Monocytes % Eosinophils % Basophils % Neutrophils # Lymphocytes # Monocytes # Eosinophils # Basophils # Sodium 139 Potassium 3.8 Chloride 111 H Carbon Dioxide 23 BUN 27 H Creatinine 1.25 H Est GFR ( Amer) 52 L Est GFR (Non-Af Amer) 43 L BUN/Creatinine Ratio 22 Glucose 105 H POC Glucose 280 H 144 H Calculated Osmolality 293 Calcium 8.8 Total Bilirubin 2.0 H AST 78 H ALT 67 H Alkaline Phosphatase 84 Serum Total Protein 6.6 Albumin 3.0 L Globulin 3.6 H Albumin/Globulin Ratio 0.8 L 02/14/17 02/13/17 02/13/17 05:30 21:04 16:22 WBC 14.6 H RBC 4.65 Hgb 13.8 Hct 42.1 MCV 90.5 MCH 29.7 MCHC 32.8 RDW 12.5 Plt Count 198 MPV 11.8 Immature Gran % 0.4 Seg Neutrophils % 73.7 Lymphocytes % 14.4 Monocytes % 10.9 Eosinophils % 0.3 Basophils % 0.3 Neutrophils # 10.7 H Lymphocytes # 2.1 Monocytes # 1.6 H Eosinophils # 0.1 Basophils # 0.0 Sodium Potassium Chloride Carbon Dioxide BUN Creatinine Est GFR ( Amer) Est GFR (Non-Af Amer) BUN/Creatinine Ratio Glucose POC Glucose 177 H 226 H Calculated Osmolality Calcium Total Bilirubin AST ALT Alkaline Phosphatase Serum Total Protein Albumin Globulin Albumin/Globulin Ratio 02/13/17 02/13/17 11:14 07:14 WBC RBC Hgb Hct MCV MCH MCHC RDW Plt Count MPV Immature Gran % Seg Neutrophils % Lymphocytes % Monocytes % Eosinophils % Basophils % Neutrophils # Lymphocytes # Monocytes # Eosinophils # Basophils # Sodium Potassium Chloride Carbon Dioxide BUN Creatinine Est GFR ( Amer) Est GFR (Non-Af Amer) BUN/Creatinine Ratio Glucose POC Glucose 259 H 287 H Calculated Osmolality Calcium Total Bilirubin AST ALT Alkaline Phosphatase Serum Total Protein Albumin Globulin Albumin/Globulin Ratio - Impressions ITS Impressions Cholangiogram,Operative 02/12/17 00:00 IMPRESSION: Intraoperative cholangiogram as above. D/ / Vi Robbins Cha, MD / Vi Robbins Cha, MD Interpreting Provider: Vi Robbins Cha, MD
[2017-02-14] MEDS: Diphenoxylate/Atropine 1 TAB TABLET PO PRN (20:00)
[2017-02-14] MEDS: *HR* HYDROmorphone (PF) 1 MG/ML SYRINGE IVP PRN (20:01)
[2017-02-14] MEDS: *HR* Heparin 5,000 UNIT/ML VIAL SQ SCH (20:02)
[2017-02-15] MEDS: MetroNIDAZOLE 500 MG/100 ML 500 MG/100 ML BAG IVPB SCH ×3 (00:13→17:44)
[2017-02-15] MEDS: 0.9 % Sodium Chloride 1,000 ML IVC SCH ×2 (00:17→21:43)
[2017-02-15] MEDS: Diphenoxylate/Atropine 1 TAB TABLET PO PRN (05:30)
[2017-02-15] MEDS: Pantoprazole 40 MG VIAL IVP SCH (05:31)
[2017-02-15] MEDS: *HR* Heparin 5,000 UNIT/ML VIAL SQ SCH ×2 (05:31→17:52)
[2017-02-15 06:17] LABS: Basophils % 0.2 %; Eosinophils # 0.3 K/mcL (0.0-0.6); Hematocrit 40.5 % (35.3-44.9); Hemoglobin 12.9 g/dL (11.5-15.4); Immature Granulocytes % 0.7 % (0-4); Immature Platelets 5.2 % (1.1-6.1); Lymphocytes # 0.9 K/mcL (0.6-4.6); Lymphocytes % 10.3 %; Mean Corpuscular HGB Conc 31.9 g/dL (31.6-35.5); Mean Corpuscular Hemoglobin 29.5 pg (28.0-33.3); Mean Corpuscular Volume 92.7 fL (83.0-100.0); Mean Platelet Volume 11.7 fL (9.4-12.4); Monocytes # 1.2 K/mcL (0.0-1.3); Monocytes % 14.1 %; Platelet Count 184 K/mcL (140-400); Red Blood Count 4.37 M/mcL (3.82-4.97); Red Cell Distribution Width 12.5 % (11.5-14.5); Segmented Neutrophils % 70.7 %
[2017-02-15 06:28] LABS: Albumin 2.7 g/dL (3.5-5.0); Albumin/Globulin Ratio 0.8 (1.1-2.2); Bilirubin,Total 0.9 mg/dL (0.2-1.2); Calcium 8.8 mg/dL (8.6-10.8); Globulin 3.3 g/dL (2.4-3.5); Potassium 4.1 mEq/L (3.5-4.5)
[2017-02-15] MEDS: Lisinopril 20 MG TABLET PO SCH (08:29)
[2017-02-15] MEDS: Cholestyramine 4 GM POWD.PACK PO SCH ×2 (08:29→11:46)
[2017-02-15] MEDS: Isosorbide MONOnitrate (24 HR) 30 MG TAB.ER.24H PO SCH (08:29)
[2017-02-15] MEDS: Metoprolol XL (24 HR) Succ 50 MG TAB.ER.24H PO SCH (08:29)
[2017-02-15] MEDS: Insulin LISPRO 300 UNITS/3 ML VIAL SQ SCH ×3 (08:31→17:44)
[2017-02-15] MEDS: Canagliflozin [Invokana] 100 MG PO SCH (08:32)
[2017-02-15] MEDS ORDERED: 0.9 % Sodium Chloride 500 ML IVC ONE ×2 (09:15→12:00)
--- NOTE | 2017-02-15 09:29 | General Surgery Progress Note ---
<Betito Eaton - Last Filed: 02/15/17 09:25> Date of Encounter: 02/15/17 Time of Encounter: 06:30 - Assessment and Plan (1) Acute cholecystitis Current Visit: No Status: Resolved POD #3 Laparoscopic Cholecystectomy Patient continues to improve Tolerating diabetic diet T. Bili 0.9 < 2.0 < 3.0, WBC 8.5 < 14.6 < 13.2 No fever overnight, will continue to monitor Patient did have nausea/vomiting last night and was nearing sepsis criteria, but zofran resolved her symptoms CT Abd/Pelv w/o contrast showed atelactasis, but no acute abdominal pathology Continue antibiotics We expect continued improvement (2) Hyperglycemia Current Visit: Yes Status: Chronic Improved Continue lantus 30, high dose sliding scale insulin, and home invokana Will monitor (3) Diarrhea Current Visit: Yes Status: Acute Improved Currently on cipro and flagyl Patient did not tolerate cholestyramine powder Consulted GI Ordered GI stool culture (4) DVT prophylaxis Current Visit: Yes Status: Acute Heparin subq (5) KAREN (acute kidney injury) Current Visit: Yes Status: Acute Increase in Cr since admission: 2.38 < 1.25 < 0.89 Decrease in GFR: 20 < 43 < >60 Likely secondary to dehydration from diarrhea yesterday Now that diarrhea has greatly improved, expect KAREN to, as well 500 ml saline bolus x2 today Nephrology Consulted Subjective Patient reports: no new complaints, feels better, tolerating a regular diet ( diabetic diet), voiding w/o difficulty, flatus, bowel movement (diarrhea has mostly resolved), nausea (improved), afebrile Objective Vital Signs - Last 8 Hours Temp Pulse Resp BP Pulse Ox 02/15/17 08:01 98.3 F 66 14 147/66 92 02/15/17 03:40 98.3 F 68 14 132/60 91 Intake and Output 02/14/17 02/15/17 02/15/17 23:59 07:59 15:59 Intake Total 300 / 300 1300 / 1300 Output Total 90 / 90 200 / 200 Balance 210 / 210 1100 / 1100 Intake: IV Fluids 300 / 300 1300 / 1300 0.9 % Sodium Chloride 1, 1000 / 1000 000 ML @ 75 mls/hr IVC . [id number] [facility] Rx#: [id number] Cipro Premix 400 MG/200 200 / 200 200 / 200 ML 400 mg In 200 ml @ 200 mls/hr IVPB Q12HR [facility] Rx #:[id number] Flagyl Premix 500 MG/100 100 / 100 100 / 100 ML 500 mg In 100 ml @ 100 mls/hr IVPB Q8HR [facility] Rx# :[id number] Oral 0 / 0 0 / 0 Output: Urine 0 / 0 200 / 200 Wound Drainage 90 / 90 Right Upper Abdomen 90 / 90 Other: Meal Dinner Percent of Meal Consumed 60% Stool Size Small Stool Consistency loose # Urine Diapers 1 # Bowel Movements 1 Weight 62.777 kg Blood Glucose* 159 177 Patient Weight 02/15/17 23:59 Weight 62.777 kg - General physical appearance well developed, well nourished, no distress - Eyes normal ocular movement - ENT atraumatic, normocephalic - Neck Neck exam: trachea midline - Respiratory normal expansion, normal respiratory effort, clear to auscultation - Cardiovascular Cardiovascular exam: Present: RRR - Abdomen Abdomen: Present: bowel sounds present, soft, non tender - Incision Incision: Present: clean and dry, intact - Labs 02/15/17 05:11 02/15/17 05:11 Diabetes panel 02/15/17 Range/Units 05:11 Sodium 141 (136-145) mEq/L Potassium 4.1 (3.5-4.5) mEq/L Chloride 114 H (98-109) mEq/L Carbon Dioxide 19 (19-29) mEq/L BUN 34 H (7-20) mg/dL Creatinine 2.38 H D (0.57-1.11) mg/dL Glucose 105 H (70-99) mg/dL Calcium 8.8 (8.6-10.8) mg/dL AST 46 H (5-34) Units/L ALT 49 (0-55) Units/L Alkaline Phosphatase 90 (38-126) Units/L Albumin 2.7 L (3.5-5.0) g/dL Calcium panel 02/15/17 Range/Units 05:11 Calcium 8.8 (8.6-10.8) mg/dL Albumin 2.7 L (3.5-5.0) g/dL Pituitary panel 02/15/17 Range/Units 05:11 Sodium 141 (136-145) mEq/L Potassium 4.1 (3.5-4.5) mEq/L Chloride 114 H (98-109) mEq/L Carbon Dioxide 19 (19-29) mEq/L BUN 34 H (7-20) mg/dL Creatinine 2.38 H D (0.57-1.11) mg/dL Glucose 105 H (70-99) mg/dL Calcium 8.8 (8.6-10.8) mg/dL Adrenal panel 02/15/17 Range/Units 05:11 Sodium 141 (136-145) mEq/L Potassium 4.1 (3.5-4.5) mEq/L Chloride 114 H (98-109) mEq/L Carbon Dioxide 19 (19-29) mEq/L BUN 34 H (7-20) mg/dL Creatinine 2.38 H D (0.57-1.11) mg/dL Glucose 105 H (70-99) mg/dL Calcium 8.8 (8.6-10.8) mg/dL Total Bilirubin 0.9 D (0.2-1.2) mg/dL AST 46 H (5-34) Units/L ALT 49 (0-55) Units/L Alkaline Phosphatase 90 (38-126) Units/L Albumin 2.7 L (3.5-5.0) g/dL - VTE Documentation of Mechanical Device: Intermittent pneumatic compression device Consult Discharge Plan - Plan Additional Instructions: #1 may shower, no tub bath or swimming for 2 weeks #2 wash incisions with soap and water and pat dry daily #3 no lifting, pushing, pulling more than 15 pounds for the next 2 weeks #4 no driving until off narcotics for 24 hours and able to safely react in the car #5 may climb stairs Referrals: Cameron Durán MD [Primary Care Provider] - (hospital follow-up; 5-7 days) Payal Funes CNP [Advanced Practice Nurse] - 02/28/17 10:45 am Prescriptions: OxyCODONE/APAP 5/325 [Percocet 5/325 MG] 1 each PO Q4HR PRN #30 tab PRN Reason: Pain Ciprofloxacin [Cipro] 500 mg PO BID #14 tablet metroNIDAZOLE [Flagyl] 500 mg PO BID #14 tablet <Chi Jean-Baptiste - Last Filed: 02/15/17 17:36> Date of Encounter: 02/15/17 Objective Vital Signs - Last 8 Hours Temp Pulse Resp BP Pulse Ox 02/15/17 14:50 99.4 F 61 15 128/64 95 02/15/17 10:57 98.5 F 63 16 134/70 95 Intake and Output 02/15/17 02/15/17 02/15/17 07:59 15:59 23:59 Intake Total 1300 / 1300 720 / 720 Output Total 200 / 200 250 / 250 Balance 1100 / 1100 470 / 470 Intake: IV Fluids 1300 / 1300 0.9 % Sodium Chloride 1, 1000 / 1000 000 ML @ 75 mls/hr IVC . [id number] [facility] Rx#: [id number] Cipro Premix 400 MG/200 200 / 200 ML 400 mg In 200 ml @ 200 mls/hr IVPB Q12HR [facility] Rx #:[id number] Flagyl Premix 500 MG/100 100 / 100 ML 500 mg In 100 ml @ 100 mls/hr IVPB Q8HR [facility] Rx# :[id number] Oral 0 / 0 720 / 720 Output: Urine 200 / 200 250 / 250 Other: Meal Lunch Percent of Meal Consumed 20% Weight 62.777 kg Blood Glucose* 179 172 Patient Weight 02/15/17 23:59 Weight 62.777 kg - Labs 02/15/17 05:11 02/15/17 05:11 Diabetes panel 02/15/17 Range/Units 05:11 Sodium 141 (136-145) mEq/L Potassium 4.1 (3.5-4.5) mEq/L Chloride 114 H (98-109) mEq/L Carbon Dioxide 19 (19-29) mEq/L BUN 34 H (7-20) mg/dL Creatinine 2.38 H D (0.57-1.11) mg/dL Glucose 105 H (70-99) mg/dL Calcium 8.8 (8.6-10.8) mg/dL AST 46 H (5-34) Units/L ALT 49 (0-55) Units/L Alkaline Phosphatase 90 (38-126) Units/L Albumin 2.7 L (3.5-5.0) g/dL Calcium panel 02/15/17 Range/Units 05:11 Calcium 8.8 (8.6-10.8) mg/dL Albumin 2.7 L (3.5-5.0) g/dL Pituitary panel 02/15/17 Range/Units 05:11 Sodium 141 (136-145) mEq/L Potassium 4.1 (3.5-4.5) mEq/L Chloride 114 H (98-109) mEq/L Carbon Dioxide 19 (19-29) mEq/L BUN 34 H (7-20) mg/dL Creatinine 2.38 H D (0.57-1.11) mg/dL Glucose 105 H (70-99) mg/dL Calcium 8.8 (8.6-10.8) mg/dL Adrenal panel 02/15/17 Range/Units 05:11 Sodium 141 (136-145) mEq/L Potassium 4.1 (3.5-4.5) mEq/L Chloride 114 H (98-109) mEq/L Carbon Dioxide 19 (19-29) mEq/L BUN 34 H (7-20) mg/dL Creatinine 2.38 H D (0.57-1.11) mg/dL Glucose 105 H (70-99) mg/dL Calcium 8.8 (8.6-10.8) mg/dL Total Bilirubin 0.9 D (0.2-1.2) mg/dL AST 46 H (5-34) Units/L ALT 49 (0-55) Units/L Alkaline Phosphatase 90 (38-126) Units/L Albumin 2.7 L (3.5-5.0) g/dL - Attending Attestation I examined this patient and my medical decision-making was reviewed with the Resident Physician. I agree with the documented findings, disposition and treatment plan as described except to the extent set forth below. The patient is seen and evaluated on afternoon rounds. She was started on Lomotil and her diarrhea responded. Her diarrhea has essentially stopped. She has developed acute kidney injury and renal evaluation is pending. She was treated with fluid hydration with additional fluid boluses throughout the day. She is taking a regular diet. She is not tolerating Percocet and we will change her to [place]. Chi Jean-Baptiste MD FACS
[2017-02-15] MEDS: Insulin DETEMIR 100 UNIT/ML X5UNITS SQ SCH (10:09)
--- NOTE | 2017-02-15 11:46 | Gastroenterology Consult Note ---
<Maik Dickreson Jessica - Last Filed: 02/15/17 11:44> Date of Encounter: 02/15/17 Time of Encounter: 10:40 - Assessment and plan (1) Acute cholecystitis Current Visit: No Status: Resolved Assessment and plan: Pt is s/p laparoscopic cholecystectomy 02/12/2017. Intraoperative cholangiogram normal. Patient developed nausea, vomiting, and diarrhea which is nearly resolved now. LFTs have improved since admission with TB 0.9, AST [address] A/P is negative. No CBD dilation or evidence of bile leak. No GI interventions needed at this time. (2) Diarrhea Current Visit: Yes Status: Acute Assessment and plan: GI panel pending. Recommend daily fiber supplement. Qualifiers: Diarrhea type: unspecified type Qualified Code(s): R19.7 - Diarrhea, unspecified (3) Nausea & vomiting Current Visit: Yes Status: Acute Assessment and plan: Patient was some nausea and vomiting overnight which has since resolved. Patient denies any nausea at this time. Continue antiemetics as needed. Qualifiers: Vomiting type: unspecified Vomiting Intractability: unspecified Qualified Code(s): R11.2 - Nausea with vomiting, unspecified - Time Spent With Patient Total time spent is greater than 50% in coordination of care (as documented) at patient's floor/unit and/or counseling patient: GI History of Present Illness - Data of Consult Patient: new to practice Consult date: 02/15/17 Requesting Physician: Chi Jean-Baptiste MD - Consult Narrative Reason for consult: s/p cholecystectomy, N/V/D History of present illness: Ms. Perez is a 66 year old female with PMHx of DM, HTN, [place] on Plavix who presented from [place] [facility] with severe RUQ abdominal pain. She states the abdominal pain started in the epigastric area and migrated to the RUQ. She had nausea and numerous episodes of vomiting. CT at [place] was concerning for acute cholecystitis - with significant cholelithiasis, wall thickening, and pericholecystic stranding and fluid. Laparoscopic cholecystectomy was completed on 02/12/2017, intraoperative cholangiogram was normal. LFTs have improved since admission. Procedures: None NSAIDs: None Anticoagulation: Plavix Past Med Surg Social Fam HX - Past Medical History Medical history: diabetes, hypertension, myocardial infarction, other Psychiatric history: no psych history - Past Surgical History Surgical History: cholecystectomy - Social History Smoking Status: Never smoker Smokeless Tobacco Status: No Alcohol use: none Drug use: none - Family History Brother Hx Family Endocrine Disorder: Yes (DM) - Gastrointestinal Gastrointestinal: Present: as per HPI - Constitutional Constitutional: as per HPI - EENT Eyes: as per HPI Ears: Present: as per HPI Nose, mouth and throat: Present: as per HPI - Cardiovascular Cardiovascular ROS: Present: as per HPI - Respiratory Respiratory IM: Present: as per HPI - Genitourinary Genitourinary: Absent: change in color, Urinary frequency - Neurological ROS Neurological GI: Present: as per HPI - Hematologic/Lymphatic Hematologic/Lymphatic pediatric: Present: as per HPI - Musculoskeletal Musculoskeletal ROS GI: Present: as per HPI - Integumentary Integumentary GI: Present: as per HPI - Psychiatric ROS Psychiatric GI: Present: as per HPI - Endocrine Endocrine IM: Present: as per HPI - Constitutional Vitals: Temp Pulse Resp BP Pulse Ox 98.5 F 63 16 134/70 95 02/15/17 10:57 02/15/17 10:57 02/15/17 10:57 02/15/17 10:57 02/15/17 10:57 General appearance: Present: cooperative, A&O X 3, no acute distress, answers questions appropriately - Head Head exam: Present: atraumatic, normocephalic - Eye Eye exam: Present: normal appearance, sclera anicteric - ENT ENT exam: Present: mucous membranes dry - Neck Neck exam general surgery: Present: normal inspection, trachea midline - Respiratory Respiratory exam: Present: CTAB. Absent: rales, rhonchi - Cardiovascular Cardiovascular exam: Present: RRR, +S1, +S2 - GI/Abdominal GI/Abdominal exam: Present: soft, no peritoneal signs. Absent: distended, firm , guarding, tenderness - Rectal Rectal exam: Present: deferred - Extremities Exam Extremities exam: Present: warm - Neurological Exam Neurological exam: Present: no focal deficits - Psychiatric Psychiatric exam: Present: normal affect, normal mood - Skin Skin exam: Present: dry, intact, normal color, warm Results - Labs CBC & Chem 7: 02/15/17 05:11 02/15/17 05:11 Labs: Last Result Calcium 8.8 mg/dL (8.6-10.8) 02/15/17 05:11 Entire Visit Hgb 12.9 g/dL (11.5-15.4) 02/15/17 05:11 Hct 40.5 % (35.3-44.9) 02/15/17 05:11 Total Bilirubin 0.9 mg/dL (0.2-1.2) D 02/15/17 05:11 AST 46 Units/L (5-34) H 02/15/17 05:11 ALT 49 Units/L (0-55) 02/15/17 05:11 - Impressions Impressions Abdomen/Pelvis CT 02/14/17 17:25 IMPRESSION: 1. Patient status post interval cholecystectomy, without acute postoperative complication within the abdomen or pelvis. There is no evidence of a biloma or abscess. 2. 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 3. Stable 1.9 cm calcified splenic artery aneurysm. Annual follow-up is suggested. 4. Colonic diverticulosis, without evidence of diverticulitis. 5. Interval development of small bilateral pleural effusions and bibasilar interstitial pulmonary edema. Mild curvilinear bibasilar opacities are favored to represent atelectasis over aspiration or pneumonia. D/ / 02/14/2017 19:09:32 Pipe Lugo MD / [facility] Interpreting Provider: Pipe Lugo MD Consult Discharge Plan - Plan Additional Instructions: #1 may shower, no tub bath or swimming for 2 weeks #2 wash incisions with soap and water and pat dry daily #3 no lifting, pushing, pulling more than 15 pounds for the next 2 weeks #4 no driving until off narcotics for 24 hours and able to safely react in the car #5 may climb stairs Referrals: Cameron Durán MD [Primary Care Provider] - (hospital follow-up; 5-7 days) Payal Funes ACTIVITIES LEADER [Advanced Practice Nurse] - 02/28/17 10:45 am Prescriptions: OxyCODONE/APAP 5/325 [Percocet 5/325 MG] 1 each PO Q4HR PRN #30 tab PRN Reason: Pain Ciprofloxacin [Cipro] 500 mg PO BID #14 tablet metroNIDAZOLE [Flagyl] 500 mg PO BID #14 tablet <Sweta Fernandez - Last Filed: 02/15/17 12:25> Date of Encounter: 02/15/17 Time of Encounter: 15:00 - Time Spent With Patient Total time spent is greater than 50% in coordination of care (as documented) at patient's floor/unit and/or counseling patient: GI History of Present Illness - Data of Consult Requesting Physician: Chi Jean-Baptiste MD - Consult Narrative History of present illness: Ms. Perez is a 66 year old female - Constitutional Vitals: Temp Pulse Resp BP Pulse Ox 98.5 F 63 16 134/70 95 02/15/17 10:57 02/15/17 10:57 02/15/17 10:57 02/15/17 10:57 02/15/17 10:57 Results - Labs CBC & Chem 7: 02/15/17 05:11 02/15/17 05:11 Labs: Last Result Calcium 8.8 mg/dL (8.6-10.8) 02/15/17 05:11 Entire Visit Hgb 12.9 g/dL (11.5-15.4) 02/15/17 05:11 Hct 40.5 % (35.3-44.9) 02/15/17 05:11 Total Bilirubin 0.9 mg/dL (0.2-1.2) D 02/15/17 05:11 AST 46 Units/L (5-34) H 02/15/17 05:11 ALT 49 Units/L (0-55) 02/15/17 05:11 - Impressions Impressions Abdomen/Pelvis CT 02/14/17 17:25 IMPRESSION: 1. Patient status post interval cholecystectomy, without acute postoperative complication within the abdomen or pelvis. There is no evidence of a biloma or abscess. 2. 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 3. Stable 1.9 cm calcified splenic artery aneurysm. Annual follow-up is suggested. 4. Colonic diverticulosis, without evidence of diverticulitis. 5. Interval development of small bilateral pleural effusions and bibasilar interstitial pulmonary edema. Mild curvilinear bibasilar opacities are favored to represent atelectasis over aspiration or pneumonia. D/ / 02/14/2017 19:09:32 Pipe Lugo MD / [facility] Interpreting Provider: Pipe Lugo MD - Attending Attestation I examined this patient and my medical decision-making was reviewed with the Resident Physician. I agree with the documented findings, disposition and treatment plan as described except to the extent set forth below. The patient was having diarrhea after the gallbladder surgery and was given cholestyramine and that made her nauseated and then she vomited many times but currently she is not vomiting anymore and per patient diarrhea has resolved and the stool becoming more formed. EDMUND drain is out the LFTs are getting better CT scan is unremarkable
[2017-02-15] MEDS ORDERED: *HR* HYDROcodone/Acet 5/325 mg TABLET PO PRN (17:48)
--- NOTE | 2017-02-15 18:10 | Nephrology Consult Note ---
Date of Encounter: 02/15/17 Time of Encounter: 18:06 Assessment and Plan (1) KAREN (acute kidney injury) Current Visit: Yes Status: Acute Non-oliguric KAREN likely multifactorial with severe pre-renal dehydration from the diarrhea, but also from the loss of auto-renal regulation while taking an BUD inhibitor and from NSAIDs. She also has a hx of T2DM, which can make KAREN more probable. Agree with the IVF for volume expansion and agree with having stopped the NSAIDs. I also will hold the Lisinopril. I reviewed the noncontrast CT and there was no hydronephrosis and her kidneys appeared essentially unremarkable, so I will hold off on checking a retroperitoneal U/S. No urgent indications for [facility] tonight. I had a long conversation with the pt and her family about the importance of not leaving the hospital AMA tonight as she was wanting, but to remain for IVF, and to ensure that her renal first improves. Continue to follow a renal protective strategy: dose rx by GFR, avoid nephrotoxins such IV contrast, Bactrim, NSAIDs, etc Thank you for consulting the [facility] group. Will follow with you. (2) Diarrhea Current Visit: Yes Status: Acute See above Qualifiers: Diarrhea type: unspecified type Qualified Code(s): R19.7 - Diarrhea, unspecified (3) Myelolipoma of right adrenal gland Current Visit: Yes Status: Chronic Noted on noncontrast CT abd. Recommend periodic imaging. The report stated "stable" suggesting that this has been seen on prior imaging and therefore is chronic. History of Present Illness - Reason for Consult Consult date: 02/15/17 Acute Kidney Injury Requesting physician: Chi Jean-Baptiste - Chief Complaint KAREN - History of Present Illness Arleth Perez is a very pleasant and anxious 66 y/o WF with a pmh of obesity and et al who presented with acute cholecystitis. Nephrology was consulted for KAREN. She reported feeling well until recently when she developed RUQ pain and was found to have acute cholecystitis. She underwent surgery. She subsequently developed reportedly severe diarrhea with about "thirty" liquid like stools. She denied taking NSAIDs prior to admission. She denied having a FHx of ESRD. She did not affirm CP, LE edema or shortness of breath. She did report increased anxiety and voiced wanting to go home. 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 Her two male family members were present. Past Med Surg Social Fam HX - Past Medical History Medical history: diabetes, hypertension, myocardial infarction, other Psychiatric history: no psych history - Past Surgical History Surgical History: cholecystectomy - Social History Smoking Status: Never smoker Smokeless Tobacco Status: No Alcohol use: none Drug use: none - Family History Brother Hx Family Endocrine Disorder: Yes (DM) Medications and Allergies Atorvastatin Calcium [Lipitor] 80 mg PO HS 09/10/15 [History] Clopidogrel [Plavix] 75 mg PO DAILY 09/10/15 [History] Ezetimibe [Zetia] 10 mg PO DAILY 09/10/15 [History] Insulin Glargine,Hum.rec.anlog [Lantus Solostar] 20 unit SQ QAM 09/10/15 [ History] hydroCHLOROthiazide [Hydrochlorothiazide] 12.5 mg PO DAILY 09/10/15 [History] Alendronate Sodium [Fosamax] 70 mg PO QWEEK 02/12/17 [History] Canagliflozin [Invokana] 100 mg PO DAILY 02/12/17 [History] Isosorbide MONOnitrate (24 HR) [Imdur] 30 mg PO DAILY 02/12/17 [History] Linagliptin [Tradjenta] 5 mg PO DAILY 02/12/17 [History] Lisinopril [Zestril] 20 mg PO DAILY 02/12/17 [History] Mag Hydrox/Al Hydrox/Simeth [Maalox] 10 ml PO QID PRN 02/12/17 [History] Metoprolol XL (24 HR) Succ [Toprol Xl] 50 mg PO DAILY 02/12/17 [History] Nitroglycerin [Nitrostat] 0.4 mg SL Q5M PRN 02/12/17 [History] Ondansetron HCl [Zofran] 4 mg PO TID PRN 02/12/17 [History] Ranitidine HCl [Zantac] 300 mg PO DAILY 02/12/17 [History] Ciprofloxacin [Cipro] 500 mg PO BID #14 tablet 02/14/17 [Rx] OxyCODONE/APAP 5/325 [Percocet 5/325 MG] 1 each PO Q4HR PRN #30 tab 02/14/17 [Rx ] metroNIDAZOLE [Flagyl] 500 mg PO BID #14 tablet 02/14/17 [Rx] 3 Allergy/AdvReac Type Severity Reaction Status Date / Time Iodinated Contrast- Oral and Allergy Difficulty Verified 02/12/17 12:58 IV Dye Breathing acetaminophen [From Nerinx] AdvReac Vomiting Verified 02/12/17 12:58 aspirin [ASA] AdvReac Chest Pain Verified 02/12/17 12:58 gabapentin AdvReac Diarrhea Verified 02/12/17 12:58 hydrocodone [From Nerinx] AdvReac Vomiting Verified 02/12/17 12:58 Review of Systems All Systems: reviewed and no additional remarkable complaints except as stated Exam - Vital Signs Vital signs: Initial Vital Signs Temp Pulse Resp BP Pulse Ox 98.8 F 65 18 119/65 96 02/12/17 16:58 02/12/17 16:58 02/12/17 16:58 02/12/17 16:58 02/12/17 16:58 Vital Signs - Last 8 Hours Temp Pulse Resp BP Pulse Ox 02/15/17 14:50 99.4 F 61 15 128/64 95 02/15/17 10:57 98.5 F 63 16 134/70 95 Intake and Output 02/15/17 02/15/17 02/15/17 07:59 15:59 23:59 Intake Total 1300 / 1300 820 / 820 40 / 40 Output Total 200 / 200 250 / 250 Balance 1100 / 1100 570 / 570 40 / 40 Intake: IV Fluids 1300 / 1300 100 / 100 0.9 % Sodium Chloride 1, 1000 / 1000 000 ML @ 75 mls/hr IVC . [id number] [facility] Rx#: [id number] Cipro Premix 400 MG/200 200 / 200 ML 400 mg In 200 ml @ 200 mls/hr IVPB Q12HR [facility] Rx #:[id number] Flagyl Premix 500 MG/100 100 / 100 100 / 100 ML 500 mg In 100 ml @ 100 mls/hr IVPB Q8HR [facility] Rx# :[id number] Oral 0 / 0 720 / 720 40 / 40 Output: Urine 200 / 200 250 / 250 Other: Meal Lunch Dinner Percent of Meal Consumed 20% 5% Weight 62.777 kg Blood Glucose* 179 172 Patient Weight 02/15/17 23:59 Weight 62.777 kg - General Appearance General appearance: well-developed, well-nourished, appears started age, obese, fatigue, anxious EENT: ATNC, PERRL, mucous membranes moist Neck: supple Respiratory: clear Cardiology: no murmurs, no edema, regular rate, normal S1, normal S2 Gastrointestinal: tenderness (mild ttp in the RUQ), obese Integumentary: no rash, warm and dry Neurologic: no focal deficit, no asterixis, alert and oriented x3 Musculoskeletal: no cyanosis, no clubbing Psychiatric: mood/affect appropriate (though she was very anxious and wanted to just go home), cooperative Results - Lab Results 02/15/17 05:11 02/15/17 05:11 Most recent lab results Calcium 8.8 mg/dL (8.6-10.8) 02/15/17 05:11 I reviewed the above data kearns and also reviewed progress notes, labs, med lists, vitals and I/Os, plus imaging. Consult Discharge Plan - Plan Additional Instructions: #1 may shower, no tub bath or swimming for 2 weeks #2 wash incisions with soap and water and pat dry daily #3 no lifting, pushing, pulling more than 15 pounds for the next 2 weeks #4 no driving until off narcotics for 24 hours and able to safely react in the car #5 may climb stairs Referrals: Cameron Durán MD [Primary Care Provider] - (hospital follow-up; 5-7 days) Payal Funes CNP [Advanced Practice Nurse] - 02/28/17 10:45 am Prescriptions: OxyCODONE/APAP 5/325 [Percocet 5/325 MG] 1 each PO Q4HR PRN #30 tab PRN Reason: Pain Ciprofloxacin [Cipro] 500 mg PO BID #14 tablet metroNIDAZOLE [Flagyl] 500 mg PO BID #14 tablet
[2017-02-16] MEDS: MetroNIDAZOLE 500 MG/100 ML 500 MG/100 ML BAG IVPB SCH ×3 (00:28→16:13)
[2017-02-16] MEDS: Pantoprazole 40 MG VIAL IVP SCH (04:40)
[2017-02-16] MEDS: *HR* Heparin 5,000 UNIT/ML VIAL SQ SCH ×3 (04:41→18:49)
[2017-02-16 05:59] LABS: Hematocrit 37.1 % (35.3-44.9); Hemoglobin 12.2 g/dL (11.5-15.4); Mean Corpuscular HGB Conc 32.9 g/dL (31.6-35.5); Mean Corpuscular Volume 91.2 fL (83.0-100.0); Platelet Count 188 K/mcL (140-400); Red Blood Count 4.07 M/mcL (3.82-4.97); Red Cell Distribution Width 12.5 % (11.5-14.5)
[2017-02-16 06:15] LABS: Albumin 2.6 g/dL (3.5-5.0); Albumin/Globulin Ratio 0.8 (1.1-2.2); Bilirubin,Direct 0.5 mg/dL (0.0-0.5); Bilirubin,Indirect 0.5 mg/dL (0.0-1.2); Calcium 8.6 mg/dL (8.6-10.8); Globulin 3.3 g/dL (2.4-3.5); Potassium 3.9 mEq/L (3.5-4.5); Total Protein 5.9 g/dL (6.0-8.3)
[2017-02-16 06:16] LABS: Magnesium 1.7 mg/dL (1.6-2.6); Phosphorous 3.7 mg/dL (2.3-4.7)
[2017-02-16] MEDS: 0.9 % Sodium Chloride 1,000 ML IVC SCH ×2 (06:47→11:39)
[2017-02-16] MEDS: Isosorbide MONOnitrate (24 HR) 30 MG TAB.ER.24H PO SCH (08:47)
[2017-02-16] MEDS: Metoprolol XL (24 HR) Succ 50 MG TAB.ER.24H PO SCH (08:47)
[2017-02-16] MEDS: Canagliflozin [Invokana] 100 MG PO SCH (08:48)
[2017-02-16] MEDS: Insulin LISPRO 300 UNITS/3 ML VIAL SQ SCH ×3 (08:48→17:55)
[2017-02-16] MEDS: Insulin DETEMIR 100 UNIT/ML X5UNITS SQ SCH (08:50)
--- NOTE | 2017-02-16 10:40 | Nephrology Progress Note ---
Date of Encounter: 02/16/17 Time of Encounter: 09:30 - Assessment and Plan (1) KAREN (acute kidney injury) Status: Acute SCr starting to level off, so would continue IVF as long as the bibasilar crackles do not become worse Will check a CXR in AM Continue to follow a renal protective / conservative strategy. (2) Diarrhea Status: Acute Contributed to the KAREN. Avoid nephrotoxins to help with renal recovery Qualifiers: Diarrhea type: unspecified type Qualified Code(s): R19.7 - Diarrhea, unspecified (3) Myelolipoma of right adrenal gland Status: Chronic Rec outpt follow up. (4) Hypertension Status: Acute Hold BUD. If needed, add prn Hydralazine 10mg IV q6hr prn and / or a CCB such as Amlodpine 5mg po daily. Qualifiers: Hypertension type: essential hypertension Qualified Code(s): I10 - Essential (primary) hypertension Subjective Principal diagnosis: KAREN Interval history: Pt was s/e and did not affirm uremic complaints. She has a hx of HTN and was taking an BUD. Discussed her care with the resident. Objective - Vital Signs Vital signs: Vital Signs Temp Pulse Resp BP Pulse Ox 02/16/17 08:33 98.5 F 78 14 181/72 95 02/16/17 02:44 99.0 F 59 16 174/75 93 02/15/17 21:55 99.0 F 67 14 132/68 93 02/15/17 20:23 98.7 F 74 16 157/66 91 02/15/17 18:50 99.0 F 73 14 154/66 93 02/15/17 14:50 99.4 F 61 15 128/64 95 02/15/17 10:57 98.5 F 63 16 134/70 95 Intake and Output 02/15/17 02/16/17 02/16/17 23:59 07:59 15:59 Intake Total 260 / 260 300 / 300 360 / 360 Output Total 100 / 100 Balance 160 / 160 300 / 300 360 / 360 Intake: IV Fluids 100 / 100 300 / 300 Cipro Premix 400 MG/200 200 / 200 ML 400 mg In 200 ml @ 200 mls/hr IVPB Q24H [facility] Rx# :[id number] Flagyl Premix 500 MG/100 100 / 100 100 / 100 ML 500 mg In 100 ml @ 100 mls/hr IVPB Q8HR [facility] Rx# :[id number] Oral 160 / 160 360 / 360 Output: Urine 100 / 100 Other: Meal Dinner Breakfast Percent of Meal Consumed 5% 100% Blood Glucose* 105 126 - General Appearance Exam: General appearance: well-developed, well-nourished, appears started age, obese, fatigue, anxious EENT: ATNC, PERRL, mucous membranes moist Neck: supple Respiratory: clear Cardiology: no murmurs, no edema, regular rate, normal S1, normal S2 Gastrointestinal: tenderness (mild ttp in the RUQ), obese Integumentary: no rash, warm and dry Neurologic: no focal deficit, no asterixis, alert and oriented x3 Musculoskeletal: no cyanosis, no clubbing Psychiatric: mood/affect appropriate (though she was very anxious and wanted to just go home), cooperative - Lab 02/17/17 06:33 02/17/17 06:33 Most recent lab results Calcium 8.6 mg/dL (8.6-10.8) 02/16/17 05:42 Phosphorus 3.7 mg/dL (2.3-4.7) 02/16/17 05:42 Magnesium 1.7 mg/dL (1.6-2.6) 02/16/17 05:42 - VTE Documentation of Mechanical Device: Intermittent pneumatic compression device Consult Discharge Plan - Plan Additional Instructions: #1 may shower, no tub bath or swimming for 2 weeks #2 wash incisions with soap and water and pat dry daily #3 no lifting, pushing, pulling more than 15 pounds for the next 2 weeks #4 no driving until off narcotics for 24 hours and able to safely react in the car #5 may climb stairs Referrals: Cameron Durán MD [Primary Care Provider] - (hospital follow-up; 5-7 days) Payal Funes CNP [Advanced Practice Nurse] - 02/28/17 10:45 am Prescriptions: amLODIPine [Norvasc] 5 mg PO DAILY #30 tablet Docusate Sodium [Colace] 100 mg PO BID #30 capsule HYDROcodone/Acet 5/325 mg [[place] 5-325 mg] 1 tab PO BID #30 tab
--- NOTE | 2017-02-16 14:10 | General Surgery Progress Note ---
<Richa Hayes Gisella - Last Filed: 02/16/17 15:38> Date of Encounter: 02/16/17 Time of Encounter: 10:45 - Assessment and Plan (1) KAREN (acute kidney injury) Current Visit: Yes Status: Acute management per nephrology, appreciate input (2) S/P laparoscopic cholecystectomy Current Visit: Yes Status: Acute tolerating regular diet prn pain control schedule colace gi/dvt prophylaxis OOB to chair with all meals ambulate Subjective Patient reports: no new complaints, feels better, still having pain, pain is less, tolerating a regular diet, voiding w/o difficulty, flatus, no bowel movement Objective Vital Signs - Last 8 Hours Temp Pulse Resp BP Pulse Ox 02/16/17 11:11 97.9 F 67 16 154/65 93 02/16/17 08:33 98.5 F 78 14 181/72 95 Intake and Output 02/15/17 02/16/17 02/16/17 23:59 07:59 15:59 Intake Total 260 / 260 300 / 300 2019 Output Total 100 / 100 Balance 160 / 160 300 / 300 2019 Intake: IV Fluids 100 / 100 300 / 300 1300 / 1300 0.9 % Sodium Chloride 1, 1000 / 1000 000 ML @ 75 mls/hr IVC . [id number] YAO Rx#: [id number] Cipro Premix 400 MG/200 200 / 200 ML 400 mg In 200 ml @ 200 mls/hr IVPB Q24H YAO Rx# :[id number] Flagyl Premix 500 MG/100 100 / 100 100 / 100 100 / 100 ML 500 mg In 100 ml @ 100 mls/hr IVPB Q8HR YAO Rx# :[id number] Oral 160 / 160 720 / 720 Output: Urine 100 / 100 Other: Meal Dinner Lunch Percent of Meal Consumed 5% 100% Blood Glucose* 105 307 - General physical appearance well developed, well nourished, no distress - Eyes PERRL, normal ocular movement - ENT normal mucosa, normocephalic - Neck Neck exam: trachea midline - Respiratory normal expansion, clear to auscultation - Cardiovascular Cardiovascular exam: Present: RRR - Abdomen Abdomen: Present: bowel sounds present, soft, tender - Incision Incision: Present: clean and dry, intact - Integumentary no rash, no growths - Neurologic CN 2-12 grossly intact - Musculoskeletal normal posture - Psychiatric oriented to time, memory intact - Labs 02/16/17 05:42 02/16/17 05:42 Diabetes panel 02/16/17 Range/Units 05:42 Sodium 139 (136-145) mEq/L Potassium 3.9 (3.5-4.5) mEq/L Chloride 115 H (98-109) mEq/L Carbon Dioxide 18 L (19-29) mEq/L BUN 29 H (7-20) mg/dL Creatinine 2.14 H (0.57-1.11) mg/dL Glucose 156 H (70-99) mg/dL Calcium 8.6 (8.6-10.8) mg/dL AST 27 (5-34) Units/L ALT 33 (0-55) Units/L Alkaline Phosphatase 83 (38-126) Units/L Albumin 2.6 L (3.5-5.0) g/dL Calcium panel 02/16/17 02/16/17 Range/Units 05:42 05:42 Calcium 8.6 (8.6-10.8) mg/dL Phosphorus 3.7 (2.3-4.7) mg/dL Albumin 2.6 L (3.5-5.0) g/dL Pituitary panel 02/16/17 Range/Units 05:42 Sodium 139 (136-145) mEq/L Potassium 3.9 (3.5-4.5) mEq/L Chloride 115 H (98-109) mEq/L Carbon Dioxide 18 L (19-29) mEq/L BUN 29 H (7-20) mg/dL Creatinine 2.14 H (0.57-1.11) mg/dL Glucose 156 H (70-99) mg/dL Calcium 8.6 (8.6-10.8) mg/dL Adrenal panel 02/16/17 Range/Units 05:42 Sodium 139 (136-145) mEq/L Potassium 3.9 (3.5-4.5) mEq/L Chloride 115 H (98-109) mEq/L Carbon Dioxide 18 L (19-29) mEq/L BUN 29 H (7-20) mg/dL Creatinine 2.14 H (0.57-1.11) mg/dL Glucose 156 H (70-99) mg/dL Calcium 8.6 (8.6-10.8) mg/dL Total Bilirubin 1.0 (0.2-1.2) mg/dL AST 27 (5-34) Units/L ALT 33 (0-55) Units/L Alkaline Phosphatase 83 (38-126) Units/L Albumin 2.6 L (3.5-5.0) g/dL Consult Discharge Plan - Plan Additional Instructions: #1 may shower, no tub bath or swimming for 2 weeks #2 wash incisions with soap and water and pat dry daily #3 no lifting, pushing, pulling more than 15 pounds for the next 2 weeks #4 no driving until off narcotics for 24 hours and able to safely react in the car #5 may climb stairs Referrals: Cameron Durán MD [Primary Care Provider] - (hospital follow-up; 5-7 days) Payal Funes CNP [Advanced Practice Nurse] - 02/28/17 10:45 am Prescriptions: OxyCODONE/APAP 5/325 [Percocet 5/325 MG] 1 each PO Q4HR PRN #30 tab PRN Reason: Pain Ciprofloxacin [Cipro] 500 mg PO BID #14 tablet metroNIDAZOLE [Flagyl] 500 mg PO BID #14 tablet - Attending Attestation I examined this patient and my medical decision-making was reviewed with the Resident Physician. I agree with the documented findings, disposition and treatment plan as described except to the extent set forth below. <Sixto Howell - Last Filed: 02/16/17 15:41> Date of Encounter: 02/16/17 Time of Encounter: 07:00 - Assessment and Plan (1) S/P laparoscopic cholecystectomy Current Visit: Yes Status: Acute POD#4 laparoscopic cholecystectomy 2/2 small vessel changes Patient is tolerating diabetic diet. No overnight events. Continue Diabetic diet. Patient no longer has complaints of diarrhea. Cancelled stool culture. Colace 100mg BID was added as the patient has no BM since yesterday. GI consult reports no GI intervention needed at this time. Nepro consult reports no hydronephrosis. Avoid nephrotoxins. Hold Lisinopril. Continue supportive and pain care. Encourage IS Q1hour. Ambulate as tolerated. Continue antibiotic prophylaxis with Flagyl day#3 and Cipro started today. (2) KAREN (acute kidney injury) Current Visit: Yes Status: Acute Nephrology consult: CT abd no contrast shows no hydronephrosis. No need for ROSS LIFT OPERATOR. Avoid nephrotoxins such as NSAIDS, bactrim IV contrast. Lisonopril is currently being held. Nephrology will continue to monitor. Plan per nephrology. (3) Hypertension Current Visit: Yes Status: Acute Blood pressure measured at 174/75 this a.m. Lisinopril was discontinued due to patient's KAREN. Patient denies any palpitations, dizziness, syncope. Currently on Toprol PO 50m daily We will consider another pharmacologic option to control her blood pressure. Qualifiers: Hypertension type: essential hypertension Qualified Code(s): I10 - Essential (primary) hypertension (4) DVT prophylaxis Current Visit: Yes Status: Acute Heparin 5000 units for DVT prophylaxis. Subjective Patient reports: tolerating a regular diet, voiding w/o difficulty, flatus, no bowel movement, afebrile Objective Vital Signs - Last 8 Hours Temp Pulse Resp BP Pulse Ox 02/16/17 11:11 97.9 F 67 16 154/65 93 02/16/17 08:33 98.5 F 78 14 181/72 95 Intake and Output 02/15/17 02/16/17 02/16/17 23:59 07:59 15:59 Intake Total 260 / 260 300 / 300 1660 / 1660 Output Total 100 / 100 Balance 160 / 160 300 / 300 1660 / 1660 Intake: IV Fluids 100 / 100 300 / 300 1300 / 1300 0.9 % Sodium Chloride 1, 1000 / 1000 000 ML @ 75 mls/hr IVC . [id number] YAO Rx#: [id number] Cipro Premix 400 MG/200 200 / 200 ML 400 mg In 200 ml @ 200 mls/hr IVPB Q24H YAO Rx# :[id number] Flagyl Premix 500 MG/100 100 / 100 100 / 100 100 / 100 ML 500 mg In 100 ml @ 100 mls/hr IVPB Q8HR YAO Rx# :[id number] Oral 160 / 160 360 / 360 Output: Urine 100 / 100 Other: Meal Dinner Breakfast Percent of Meal Consumed 5% 100% Blood Glucose* 105 307 - General physical appearance well developed, well nourished, no distress - Eyes normal ocular movement - ENT atraumatic, normocephalic, CN 2-12 grossly intact - Respiratory normal expansion, clear to auscultation - Cardiovascular Cardiovascular exam: Present: RRR, no murmurs/rubs/gallops - Abdomen Abdomen: Present: bowel sounds present, soft, tender (expected post-operative tenderness) Hernia: none - Neurologic CN 2-12 grossly intact, normal coordination, normal sensation - Psychiatric oriented to time, oriented to person, oriented to place, speech is normal, memory intact - Labs 02/16/17 05:42 02/16/17 05:42 Diabetes panel 02/16/17 Range/Units 05:42 Sodium 139 (136-145) mEq/L Potassium 3.9 (3.5-4.5) mEq/L Chloride 115 H (98-109) mEq/L Carbon Dioxide 18 L (19-29) mEq/L BUN 29 H (7-20) mg/dL Creatinine 2.14 H (0.57-1.11) mg/dL Glucose 156 H (70-99) mg/dL Calcium 8.6 (8.6-10.8) mg/dL AST 27 (5-34) Units/L ALT 33 (0-55) Units/L Alkaline Phosphatase 83 (38-126) Units/L Albumin 2.6 L (3.5-5.0) g/dL Calcium panel 02/16/17 02/16/17 Range/Units 05:42 05:42 Calcium 8.6 (8.6-10.8) mg/dL Phosphorus 3.7 (2.3-4.7) mg/dL Albumin 2.6 L (3.5-5.0) g/dL Pituitary panel 02/16/17 Range/Units 05:42 Sodium 139 (136-145) mEq/L Potassium 3.9 (3.5-4.5) mEq/L Chloride 115 H (98-109) mEq/L Carbon Dioxide 18 L (19-29) mEq/L BUN 29 H (7-20) mg/dL Creatinine 2.14 H (0.57-1.11) mg/dL Glucose 156 H (70-99) mg/dL Calcium 8.6 (8.6-10.8) mg/dL Adrenal panel 02/16/17 Range/Units 05:42 Sodium 139 (136-145) mEq/L Potassium 3.9 (3.5-4.5) mEq/L Chloride 115 H (98-109) mEq/L Carbon Dioxide 18 L (19-29) mEq/L BUN 29 H (7-20) mg/dL Creatinine 2.14 H (0.57-1.11) mg/dL Glucose 156 H (70-99) mg/dL Calcium 8.6 (8.6-10.8) mg/dL Total Bilirubin 1.0 (0.2-1.2) mg/dL AST 27 (5-34) Units/L ALT 33 (0-55) Units/L Alkaline Phosphatase 83 (38-126) Units/L Albumin 2.6 L (3.5-5.0) g/dL - VTE Documentation of Mechanical Device: Intermittent pneumatic compression device
[2017-02-16] MEDS ORDERED: 0.9 % Sodium Chloride 1,000 ML IVC SCH (17:37)
--- NOTE | 2017-02-16 17:54 | Event Note ---
Date of Encounter: 02/16/17 Time of Encounter: 17:[address] Diaz in regards to the patient's KAREN and hypertension. He recommends amlodipine 5mg PO daily.
[2017-02-17] MEDS: MetroNIDAZOLE 500 MG/100 ML 500 MG/100 ML BAG IVPB SCH ×2 (00:35→07:54)
[2017-02-17] MEDS: *HR* Heparin 5,000 UNIT/ML VIAL SQ SCH (05:12)
[2017-02-17] MEDS: Pantoprazole 40 MG VIAL IVP SCH (05:12)
--- NOTE | 2017-02-17 06:51 | General Surgery Progress Note ---
Date of Encounter: 02/17/17 Time of Encounter: 06:55 - Assessment and Plan (1) S/P laparoscopic cholecystectomy Current Visit: Yes Status: Acute POD #5 laparoscopic cholecystectomy Patient believes that she is going home based on nephrology. She is adamant on leaving today. a.m. BP = 192/81 Patient's kidney function is improved. Creatinine 1.56< 2.14< 2.38 Nephrology suggests to continue avoiding the ACEI and we have started Norvasc 5mg today, which will demonstrate its full impact after about 5 doses. They will arrange a follow-up with patient in about 2-4 weeks. Have her BMP checked about 1 week after discharge. She is tolerating her diabetic diet. Patient is ambulating with family support three times a day. Encourage IS use. Continue pain and wound management. (2) KAREN (acute kidney injury) Current Visit: Yes Status: Acute Plan per nephrology (3) Hypertension Current Visit: Yes Status: Acute Blood pressure measured at 192.81 this a.m. Patient denies any palpitations, dizziness, syncope. Her blood pressure went down to 162/71 after BP medication with the addition of norvasc 5mg. Continue BP checks [id number] Qualifiers: Hypertension type: essential hypertension Qualified Code(s): I10 - Essential (primary) hypertension (4) DVT prophylaxis Current Visit: Yes Status: Acute Patient is not taking her Heparin despite being informed of the benefits. Continue to encourage Heparin 5000 units for DVT prophylaxis. Consider SCDs. Subjective Patient reports: no new complaints, feels better, voiding w/o difficulty, flatus , bowel movement, afebrile, other (Patient is not taking her heparin because it makes her nauseus ) Objective Vital Signs - Last 8 Hours Temp Pulse Resp BP Pulse Ox 02/17/17 05:30 98.1 F 81 17 176/81 94 02/17/17 00:25 98.7 F 57 16 141/77 95 Intake and Output 02/16/17 02/16/17 02/17/17 15:59 23:59 07:59 Intake Total 2019 100 / 100 1500 / 1500 Output Total 0 / 0 0 / 0 Balance 2019 100 / 100 1500 / 1500 Intake: IV Fluids 1300 / 1300 100 / 100 1100 / 1100 0.9 % Sodium Chloride 1, 1000 / 1000 1000 / 1000 000 ML @ 75 mls/hr IVC . [id number] YAO Rx#: [id number] Flagyl Premix 500 MG/100 100 / 100 100 / 100 100 / 100 ML 500 mg In 100 ml @ 100 mls/hr IVPB Q8HR YAO Rx# :[id number] Oral 720 / 720 0 / 0 400 / 400 Output: Urine 0 / 0 0 / 0 Other: Meal Lunch Percent of Meal Consumed 100% # Voids 1 Weight 66.5 kg 66.9 kg Blood Glucose* 307 128 Patient Weight 02/17/17 23:59 Weight 66.9 kg - General physical appearance well developed, well nourished, no distress - Eyes normal ocular movement - ENT atraumatic, normocephalic, CN 2-12 grossly intact - Neck Neck exam: trachea midline - Respiratory normal expansion, clear to auscultation - Cardiovascular Cardiovascular exam: Present: RRR, no murmurs/rubs/gallops - Abdomen Abdomen: Present: bowel sounds present, soft, non tender, tender - Incision Incision: Present: clean and dry, intact - Neurologic CN 2-12 grossly intact, normal coordination, normal sensation - Psychiatric oriented to time, memory intact - Labs 02/17/17 06:33 02/17/17 06:33 - VTE Documentation of Mechanical Device: Intermittent pneumatic compression device Consult Discharge Plan - Plan Additional Instructions: #1 may shower, no tub bath or swimming for 2 weeks #2 wash incisions with soap and water and pat dry daily #3 no lifting, pushing, pulling more than 15 pounds for the next 2 weeks #4 no driving until off narcotics for 24 hours and able to safely react in the car #5 may climb stairs Referrals: Cameron Durán MD [Primary Care Provider] - (hospital follow-up; 5-7 days) Payal Funes CNP [Advanced Practice Nurse] - 02/28/17 10:45 am Prescriptions: OxyCODONE/APAP 5/325 [Percocet 5/325 MG] 1 each PO Q4HR PRN #30 tab PRN Reason: Pain Ciprofloxacin [Cipro] 500 mg PO BID #14 tablet metroNIDAZOLE [Flagyl] 500 mg PO BID #14 tablet
[2017-02-17 07:43] LABS: Basophils % 0.2 %; Eosinophils # 0.4 K/mcL (0.0-0.6); Hemoglobin 11.9 g/dL (11.5-15.4); Immature Granulocytes % 0.3 % (0-4); Lymphocytes # 0.6 K/mcL (0.6-4.6); Mean Corpuscular HGB Conc 33.1 g/dL (31.6-35.5); Mean Corpuscular Hemoglobin 29.8 pg (28.0-33.3); Mean Corpuscular Volume 90.2 fL (83.0-100.0); Mean Platelet Volume 11.3 fL (9.4-12.4); Monocytes # 1.1 K/mcL (0.0-1.3); Monocytes % 11.7 %; Neutrophils # 7.1 K/mcL (1.6-8.9); Platelet Count 184 K/mcL (140-400); Red Blood Count 3.99 M/mcL (3.82-4.97); Red Cell Distribution Width 12.5 % (11.5-14.5); Segmented Neutrophils % 77.8 %
[2017-02-17 07:53] LABS: Albumin 2.5 g/dL (3.5-5.0); Albumin/Globulin Ratio 0.7 (1.1-2.2); Bilirubin,Total 1.1 mg/dL (0.2-1.2); Calcium 8.5 mg/dL (8.6-10.8); Globulin 3.4 g/dL (2.4-3.5); Potassium 3.9 mEq/L (3.5-4.5); Total Protein 5.9 g/dL (6.0-8.3)
[2017-02-17] MEDS: Metoprolol XL (24 HR) Succ 50 MG TAB.ER.24H PO SCH (07:55)
[2017-02-17] MEDS: Insulin DETEMIR 100 UNIT/ML X5UNITS SQ SCH (07:55)
[2017-02-17] MEDS: Isosorbide MONOnitrate (24 HR) 30 MG TAB.ER.24H PO SCH (07:55)
[2017-02-17] MEDS: Canagliflozin [Invokana] 100 MG PO SCH (07:56)
[2017-02-17] MEDS: Insulin LISPRO 300 UNITS/3 ML VIAL SQ SCH ×2 (08:00→12:51)
[2017-02-17] MEDS ORDERED: amLODIPine 5 MG TABLET PO SCH (09:00)
--- NOTE | 2017-02-17 10:16 | Nephrology Progress Note ---
Date of Encounter: 02/17/17 Time of Encounter: 10:14 - Assessment and Plan (1) KAREN (acute kidney injury) Status: Acute SCr continuing to improve. Continue to avoid the BUD inhibitor but the addition of the Amlodipine at 5mg should demonstrate it's full impact after about 5 doses (based upon average pharmacokinetics), and her BPs as checked by the RN in the room during my exam was near 160 systolic. I'll ask my clinic team to contact the pt on Saturday to help arrange a hospital follow up appt in about 2 - 4 weeks. Please make sure she has a BMP checked about 1 week after discharge Reasonable to discharge from a nephrology perspective so long as she has close clinic follow up. Continue to follow a renal protective / conservative strategy. Thank you. 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 (4) Hypertension Status: Acute Hold BUD. If needed, add prn Hydralazine 10mg IV q6hr prn and / or a CCB such as Amlodpine 5mg po daily. After discharge if the KAREN has resolved, then would be safe to resume the ACEi. Qualifiers: Hypertension type: essential hypertension Qualified Code(s): I10 - Essential (primary) hypertension Subjective Principal diagnosis: KAREN with diarrhea Interval history: Pt was s/e and did not affirm any new, major complaints. Diarrhea has lessened. We discussed why the BUD inhibitor was held and BP med options. RN was present in the room and checked BP during my exam. Objective - Vital Signs Vital signs: Vital Signs Temp Pulse Resp BP Pulse Ox 02/17/17 09:49 98.4 F 68 17 162/71 95 02/17/17 06:40 98.4 F 68 14 192/81 94 02/17/17 05:30 98.1 F 81 17 176/81 94 02/17/17 00:25 98.7 F 57 16 141/77 95 02/16/17 20:00 98.7 F 75 18 189/79 93 02/16/17 16:09 98.6 F 78 15 145/67 95 02/16/17 11:11 97.9 F 67 16 154/65 93 Intake and Output 02/16/17 02/17/17 02/17/17 23:59 07:59 15:59 Intake Total 100 / 100 1700 / 1700 1060 / 1060 Output Total 0 / 0 0 / 0 200 / 200 Balance 100 / 100 1700 / 1700 860 / 860 Intake: IV Fluids 100 / 100 1300 / 1300 100 / 100 0.9 % Sodium Chloride 1, 1000 / 1000 000 ML @ 75 mls/hr IVC . [id number] YAO Rx#: [id number] Cipro Premix 400 MG/200 200 / 200 ML 400 mg In 200 ml @ 200 mls/hr IVPB Q24H YAO Rx# :[id number] Flagyl Premix 500 MG/100 100 / 100 100 / 100 100 / 100 ML 500 mg In 100 ml @ 100 mls/hr IVPB Q8HR YAO Rx# :[id number] Oral 0 / 0 400 / 400 960 / 960 Output: Urine 0 / 0 0 / 0 200 / 200 Other: Meal Breakfast Percent of Meal Consumed 75% Stool Size Small Stool Consistency soft formed Stool Color Brown # Voids 1 Weight 66.9 kg Blood Glucose* 128 101 Patient Weight 02/17/17 23:59 Weight 66.9 kg - General Appearance Exam: General appearance: well-developed, well-nourished, appears started age, obese, fatigue, anxious EENT: ATNC, PERRL, mucous membranes moist Neck: supple Respiratory: clear Cardiology: no murmurs, no edema, regular rate, normal S1, normal S2 Gastrointestinal: tenderness (mild ttp in the RUQ), obese Integumentary: no rash, warm and dry Neurologic: no focal deficit, no asterixis, alert and oriented x3 Musculoskeletal: no cyanosis, no clubbing Psychiatric: mood/affect appropriate (though she was very anxious and wanted to just go home), cooperative - Lab 02/17/17 06:33 02/17/17 06:33 Most recent lab results Calcium 8.5 mg/dL (8.6-10.8) L 02/17/17 06:33 Phosphorus 3.7 mg/dL (2.3-4.7) 02/16/17 05:42 Magnesium 1.7 mg/dL (1.6-2.6) 02/16/17 05:42 - VTE Documentation of Mechanical Device: Intermittent pneumatic compression device Consult Discharge Plan - Plan Additional Instructions: #1 may shower, no tub bath or swimming for 2 weeks #2 wash incisions with soap and water and pat dry daily #3 no lifting, pushing, pulling more than 15 pounds for the next 2 weeks #4 no driving until off narcotics for 24 hours and able to safely react in the car #5 may climb stairs Referrals: Cameron Durán MD [Primary Care Provider] - (hospital follow-up; 5-7 days) Payal Funes CNP [Advanced Practice Nurse] - 02/28/17 10:45 am Prescriptions: amLODIPine [Norvasc] 5 mg PO DAILY #30 tablet Docusate Sodium [Colace] 100 mg PO BID #30 capsule HYDROcodone/Acet 5/325 mg [[place] 5-325 mg] 1 tab PO BID #30 tab
[2017-02-17 12:18] VITALS: BP 160/77
--- NOTE | 2017-02-17 12:37 | Discharge Summary ---
<Sixto Howell - Last Filed: 02/17/17 12:34> Date of Encounter: 02/17/17 Time of Encounter: 11:55 - Discharge Diagnosis (1) S/P laparoscopic cholecystectomy Priority: Primary Status: Acute (2) KAREN (acute kidney injury) Priority: Secondary Status: Acute (3) Hypertension Priority: Secondary Status: Acute Qualifiers: Hypertension type: essential hypertension Qualified Code(s): I10 - Essential (primary) hypertension - Discharge Medications Prescriptions: amLODIPine [Norvasc] 5 mg PO DAILY #30 tablet Docusate Sodium [Colace] 100 mg PO BID #30 capsule HYDROcodone/Acet 5/325 mg [[place] 5-325 mg] 1 tab PO BID #30 tab Home Medications: Atorvastatin Calcium [Lipitor] 80 mg PO HS 09/10/15 [History] Clopidogrel [Plavix] 75 mg PO DAILY 09/10/15 [History] Ezetimibe [Zetia] 10 mg PO DAILY 09/10/15 [History] Insulin Glargine,Hum.rec.anlog [Lantus Solostar] 20 unit SQ QAM 09/10/15 [ History] hydroCHLOROthiazide [Hydrochlorothiazide] 12.5 mg PO DAILY 09/10/15 [History] Alendronate Sodium [Fosamax] 70 mg PO QWEEK 02/12/17 [History] Canagliflozin [Invokana] 100 mg PO DAILY 02/12/17 [History] Isosorbide MONOnitrate (24 HR) [Imdur] 30 mg PO DAILY 02/12/17 [History] Linagliptin [Tradjenta] 5 mg PO DAILY 02/12/17 [History] Lisinopril [Zestril] 20 mg PO DAILY 02/12/17 [History] Mag Hydrox/Al Hydrox/Simeth [Maalox] 10 ml PO QID PRN 02/12/17 [History] Metoprolol XL (24 HR) Succ [Toprol Xl] 50 mg PO DAILY 02/12/17 [History] Nitroglycerin [Nitrostat] 0.4 mg SL Q5M PRN 02/12/17 [History] Ondansetron HCl [Zofran] 4 mg PO TID PRN 02/12/17 [History] Ranitidine HCl [Zantac] 300 mg PO DAILY 02/12/17 [History] Docusate Sodium [Colace] 100 mg PO BID #30 capsule 02/17/17 [Rx] HYDROcodone/Acet 5/325 mg [[place] 5-325 mg] 1 tab PO BID #30 tab 02/17/17 [Rx] amLODIPine [Norvasc] 5 mg PO DAILY #30 tablet 02/17/17 [Rx] Allergies/Adverse Reactions: 3 Allergy/AdvReac Type Severity Reaction Status Date / Time Iodinated Contrast- Oral and Allergy Difficulty Verified 02/12/17 12:58 IV Dye Breathing acetaminophen [From [place]] AdvReac Vomiting Verified 02/12/17 12:58 aspirin [ASA] AdvReac Chest Pain Verified 02/12/17 12:58 gabapentin AdvReac Diarrhea Verified 02/12/17 12:58 hydrocodone [From [place]] AdvReac Vomiting Verified 02/12/17 12:58 General Surgery Exam Initial Vital Signs Temp Pulse Resp BP Pulse Ox 98.8 F 65 18 119/65 96 02/12/17 16:58 02/12/17 16:58 02/12/17 16:58 02/12/17 16:58 02/12/17 16:58 - General physical appearance well developed, well nourished, no distress - Eyes normal ocular movement - ENT atraumatic, normocephalic, CN 2-12 grossly intact - Neck trachea midline - Respiratory normal expansion, clear to auscultation - Cardiovascular Cardiovascular exam: Present: RRR, no murmurs/rubs/gallops - Abdomen Abdomen general surgery: Present: bowel sounds present, soft, non tender - Incision Incision: Present: clean and dry (3 epigastric laparoscopic incisions), intact Date of admission: 02/12/17 23:03 Primary care physician: Cameron Durán MD Consults: 02/15/17 08:54 Consult to Gastroenterology [CONS] Routine Consulting Provider: Sweta Fernandez Reason for Consult: S/p cholecystectomy, N/V/D, r/o injury from surgery Call Completed: Yes Consult to Nephrology [CONS] Routine Consulting Provider: [facility]/ORIKIRSTIN/KUN/MAYTE Reason for Consult: KAREN - Cr 0.89 > 1.25 > 2.38, GFR 60 > 43 > 20 Call Completed: Yes - Patient Status Functional capacity at discharge: independent ambulation Overall status at discharge: patient is back to baseline - Discharge Instructions Follow Up With: Cameron Durán MD [Primary Care Provider] - (hospital follow-up; 5-7 days) Payal Funes CNP [Advanced Practice Nurse] - 02/28/17 10:45 am Additional Instructions: #1 may shower, no tub bath or swimming for 2 weeks #2 wash incisions with soap and water and pat dry daily #3 no lifting, pushing, pulling more than 15 pounds for the next 2 weeks #4 no driving until off narcotics for 24 hours and able to safely react in the car #5 may climb stairs - Diet and Activity Diet: advance to your usual diet - Hospital Course Hospital course: Ms. Perez is a 66 year old female who presented as direct admit from [facility] with severe RUQ abdominal pain. She stated the pain started in the epigastric area and migrated to the RUQ. She had nausea and vomiting 2 days prior to admission. Zofran, zantac, maalox did not help her nausea and vomiting. She did not have a BM since the pain started. CT at [facility] was concerning for acute cholecystitis with significant cholelithiasis, wall thickening, and pericholecystic stranding and fluid. PMH includes PA x 2 on plavix, HTN, and diabetes. Surgical history includes tubal ligation. POD #5 laparoscopic cholecystectomy and intraoperative cholangiogram by Dr. Jean-Baptiste. Patient was on Cipro/flagyl secondary to high WBC and diarrhea, but issue has since resolved. Her creatinine levels increased to 2.38 on POD#3 and nephrology was consulted. They recommended to stop lisinopril and replaced with Norvasc 5mg. Her kidney function is returning and follow-up with nephrology will be determined tomorrow. Her blood pressure peaked at 192/81 but has since returned to baseline with the addition of Norvasc. She will follow up with her PCP for BP medication management. She will also follow-up with Dr. Jean-Baptiste in 2 weeks. - Time Spent with Patient Total time spent providing and/or coordinating discharge services: Greater than 30 minutes Labs on day of discharge: Labs from last 24 hours 02/17/17 02/17/17 02/16/17 06:33 06:33 21:44 WBC 9.1 RBC 3.99 Hgb 11.9 Hct 36.0 MCV 90.2 MCH 29.8 MCHC 33.1 RDW 12.5 Plt Count 184 MPV 11.3 Immature Gran % 0.3 Seg Neutrophils % 77.8 Lymphocytes % 6.0 Monocytes % 11.7 Eosinophils % 4.0 Basophils % 0.2 Neutrophils # 7.1 Lymphocytes # 0.6 Monocytes # 1.1 Eosinophils # 0.4 Basophils # 0.0 Sodium 142 Potassium 3.9 Chloride 115 H Carbon Dioxide 20 BUN 24 H Creatinine 1.56 H Est GFR ( Amer) 40 L Est GFR (Non-Af Amer) 33 L BUN/Creatinine Ratio 15 Glucose 84 POC Glucose 128 H Calculated Osmolality 297 Calcium 8.5 L Total Bilirubin 1.1 AST 26 ALT 27 Alkaline Phosphatase 81 Serum Total Protein 5.9 L Albumin 2.5 L Globulin 3.4 Albumin/Globulin Ratio 0.7 L 02/16/17 02/16/17 16:07 11:15 WBC RBC Hgb Hct MCV MCH MCHC RDW Plt Count MPV Immature Gran % Seg Neutrophils % Lymphocytes % Monocytes % Eosinophils % Basophils % Neutrophils # Lymphocytes # Monocytes # Eosinophils # Basophils # Sodium Potassium Chloride Carbon Dioxide BUN Creatinine Est GFR ( Amer) Est GFR (Non-Af Amer) BUN/Creatinine Ratio Glucose POC Glucose 132 H 307 H Calculated Osmolality Calcium Total Bilirubin AST ALT Alkaline Phosphatase Serum Total Protein Albumin Globulin Albumin/Globulin Ratio - Impressions ITS Impressions Cholangiogram,Operative 02/12/17 00:00 IMPRESSION: Intraoperative cholangiogram as above. D/ / Vi Robbins Cha, MD / Vi Robbins Cha, MD Interpreting Provider: Vi Robbins Cha, MD Abdomen/Pelvis CT 02/14/17 17:25 IMPRESSION: 1. Patient status post interval cholecystectomy, without acute postoperative complication within the abdomen or pelvis. There is no evidence of a biloma or abscess. 2. 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 3. Stable 1.9 cm calcified splenic artery aneurysm. Annual follow-up is suggested. 4. Colonic diverticulosis, without evidence of diverticulitis. 5. Interval development of small bilateral pleural effusions and bibasilar interstitial pulmonary edema. Mild curvilinear bibasilar opacities are favored to represent atelectasis over aspiration or pneumonia. D/ / 02/14/2017 19:09:32 Pipe Lugo MD / [facility] Interpreting Provider: Pipe Lugo MD <AbigailRicha Obando - Last Filed: 02/17/17 13:23> Date of Encounter: 02/17/17 - Discharge Diagnosis (1) KAREN (acute kidney injury) Priority: Secondary Status: Acute (2) S/P laparoscopic cholecystectomy Priority: Primary Status: Acute General Surgery Exam Initial Vital Signs Temp Pulse Resp BP Pulse Ox 98.8 F 65 18 119/65 96 02/12/17 16:58 02/12/17 16:58 02/12/17 16:58 02/12/17 16:58 02/12/17 16:58 - General physical appearance well developed, well nourished, no distress, no pain - Eyes PERRL, normal ocular movement - ENT normal mucosa, atraumatic, normocephalic - Neck no masses, trachea midline - Respiratory normal expansion, clear to auscultation - Cardiovascular Cardiovascular exam: Present: RRR - Abdomen Abdomen general surgery: Present: bowel sounds present, soft, tender ( appropriate post op tenderness) - Integumentary Integumentary general surgery: Present: warm and dry, no abnormal pigmentation - Neurologic Present: CN 2-12 grossly intact - Musculoskeletal Present: normal gait, normal posture - Psychiatric Psychiatric general surgery: Present: A&Ox3, speech is normal Date of admission: 02/12/17 23:03 Primary care physician: Cameron Durán MD Consults: 02/15/17 08:54 Consult to Gastroenterology [CONS] Routine Consulting Provider: Sweta Fernandez Reason for Consult: S/p cholecystectomy, N/V/D, r/o injury from surgery Call Completed: Yes Consult to Nephrology [CONS] Routine Consulting Provider: [facility] [place]/KUN/MAYTE Reason for Consult: KAREN - Cr 0.89 > 1.25 > 2.38, GFR 60 > 43 > 20 Call Completed: Yes Discharging clinician: Richa Hayes Anticipated date of discharge: 02/17/17 - Patient Status Functional capacity at discharge: independent ambulation Overall status at discharge: patient is progressing back to baseline - Diet and Activity Activity: increase activity as tolerated Diet: advance to your usual diet - Hospital Course Hospital course: Ms. Perez is a 66 year old female who underwent laparoscopic cholecystectomy for gangrenous cholecystitis. Post op course was complicated by HTN and acute kidney injury. She was asked to stay to get her BP under better control but the patient refused and asked to leave AMA. Will DC and asked she make an appt with her PCP this week. - Time Spent with Patient Total time spent providing and/or coordinating discharge services: Labs on day of discharge: Labs from last 24 hours 02/17/17 02/17/17 02/16/17 06:33 06:33 21:44 WBC 9.1 RBC 3.99 Hgb 11.9 Hct 36.0 MCV 90.2 MCH 29.8 MCHC 33.1 RDW 12.5 Plt Count 184 MPV 11.3 Immature Gran % 0.3 Seg Neutrophils % 77.8 Lymphocytes % 6.0 Monocytes % 11.7 Eosinophils % 4.0 Basophils % 0.2 Neutrophils # 7.1 Lymphocytes # 0.6 Monocytes # 1.1 Eosinophils # 0.4 Basophils # 0.0 Sodium 142 Potassium 3.9 Chloride 115 H Carbon Dioxide 20 BUN 24 H Creatinine 1.56 H Est GFR ( Amer) 40 L Est GFR (Non-Af Amer) 33 L BUN/Creatinine Ratio 15 Glucose 84 POC Glucose 128 H Calculated Osmolality 297 Calcium 8.5 L Total Bilirubin 1.1 AST 26 ALT 27 Alkaline Phosphatase 81 Serum Total Protein 5.9 L Albumin 2.5 L Globulin 3.4 Albumin/Globulin Ratio 0.7 L 02/16/17 02/16/17 16:07 11:15 WBC RBC Hgb Hct MCV MCH MCHC RDW Plt Count MPV Immature Gran % Seg Neutrophils % Lymphocytes % Monocytes % Eosinophils % Basophils % Neutrophils # Lymphocytes # Monocytes # Eosinophils # Basophils # Sodium Potassium Chloride Carbon Dioxide BUN Creatinine Est GFR ( Amer) Est GFR (Non-Af Amer) BUN/Creatinine Ratio Glucose POC Glucose 132 H 307 H Calculated Osmolality Calcium Total Bilirubin AST ALT Alkaline Phosphatase Serum Total Protein Albumin Globulin Albumin/Globulin Ratio - Impressions ITS Impressions Cholangiogram,Operative 02/12/17 00:00 IMPRESSION: Intraoperative cholangiogram as above. D/ / Vi Robbins Cha, MD / Vi Robbins Cha, MD Interpreting Provider: Vi Robbins Cha, MD Abdomen/Pelvis CT 02/14/17 17:25 IMPRESSION: 1. Patient status post interval cholecystectomy, without acute postoperative complication within the abdomen or pelvis. There is no evidence of a biloma or abscess. 2. 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 3. Stable 1.9 cm calcified splenic artery aneurysm. Annual follow-up is suggested. 4. Colonic diverticulosis, without evidence of diverticulitis. 5. Interval development of small bilateral pleural effusions and bibasilar interstitial pulmonary edema. Mild curvilinear bibasilar opacities are favored to represent atelectasis over aspiration or pneumonia. D/ / 02/14/2017 19:09:32 [facility] Interpreting Provider: Pipe Lugo MD
== END 2017-02-17 14:02 | disposition home or self-care (01) | DRG 418 ==
LOC: 3ANU
PROVIDERS: ADMIT Surgery; ATTEND Surgery